=== PATIENT | male | born 1930 | race Caucasian/White ===

== ENCOUNTER 2016-06-22 17:36 | Inpatient (IN) | payer MEDICARE, BC ==
--- NOTE | 2016-06-22 17:25 | EDM.PDOC ---
Addendum entered and electronically signed by Perri Jeronimo PA-C 06/23/16 03:27: Agree with assessment and documentation of Dr. Crys Grewal. Tc consult Dr. Tafoya regarding patient with new compression fracture L2. Dr. Man agreeable that patient appropriate for admission for observation for further evaluation and pain management. Son here and informed of findings and plan. Original Note: <Meir Osman - Last Filed: 06/22/16 18:51> ED HPI LOWER BACK PAIN/INJURY - General Chief Complaint: Back Pain or Injury Stated Complaint: AMB Time Seen by Provider: 06/22/16 17:25 Source of Information: Reports: Patient, EMS notes reviewed, Family, RN notes reviewed History Limitations: Reports: No limitations - History of Present Illness INITIAL COMMENTS - FREE TEXT/NARRATIVE: An 86-year-old male presenting with mid thoracic back pain, started at home today around noon when he was getting up to answer the phone. The pain was sudden and sharp and improved with rest. He denies any falls. He denies any numbness or tingling in his legs. He has chronic numbness in his feet, which is unchanged. He denies any saddle paresthesias. He has a history of an enlarged prostate and denies new urinary symptoms. He denies any incontinence of stool. He has not taken any medication for the pain. He has a history of a vertebral fracture dating back to December 17, 2015. He was recently discharged from a rehab program two weeks ago. Reports doing well at home until this point. He sometimes uses a cane for ambulation. Symptom Onset Date: 06/22/16 Timing/Duration: Reports: Sudden onset Location: Reports: paraspinal Quality: Reports: Sharp Severity: severe Place of Occurrence: home Improves with: Reports: Rest Worsens with: Reports: Movement Associated Symptoms: Reports: Denies symptoms - Related Data Allergies/ADRs: Allergies Allergy/AdvReac Type Severity Reaction Status Date / Time No Known Allergies Allergy Verified 06/22/16 17:09 Home Meds: Home Meds Cholecalciferol (Vitamin D3) [Vitamin D3] 1,000 units PO DAILY 10/22/13 [History ] Docusate Sodium [Colace] 50 mg PO DAILY PRN 10/22/13 [History] Ibuprofen 600 mg PO Q6H PRN 10/22/13 [History] Simvastatin 10 mg PO BEDTIME 10/22/13 [History] Albuterol Sulfate [Proventil Hfa] 2 puff IH Q6H PRN 07/22/15 [History] Fluticasone/Salmeterol [Advair 250-50 Diskus] 1 puff INH BID 01/07/16 [History] Ipratropium [place] 2 sprays NASBOTH QID PRN 01/07/16 [History] Polyethylene Glycol 3350 [MiraLAX] 17 gm PO DAILY PRN 01/07/16 [History] Acetaminophen [Tylenol] 650 mg PO Q4H PRN #0 tablet 01/21/16 [Rx] Calcitonin ([place]) [Miacalcin Nasal [place]] 1 spray [place]RON DAILY #0 bottle [Rx] Calcium Carbonate/Vitamin D3 [Calcium 600-Vit D3 400 Tablet] 1 each PO DAILY # 30 tablet 01/25/16 [Rx] Multivit-Min/FA/Lycopene/Lut [Centrum Silver Ultra Men's] 1 each PO DAILY #30 tablet 01/25/16 [Rx] Past Medical History HEENT History: Reports: Hard of hearing Cardiovascular History: Reports: High cholesterol Respiratory History: Reports: Asthma Gastrointestinal History: Reports: Bowel obstruction Other Gastrointestinal History: colon cancer Genitourinary History: Reports: Other (see below) Other Genitourinary History: urinary frequency Musculoskeletal History: Reports: Fracture Other Musculoskeletal History: lumbar fusion L4-5. , chronic back pain. Compression fracture 12.27.15 Psychiatric History: Reports: Anxiety Oncologic (Cancer) History: Reports: Colon - Past Surgical History HEENT Surgical History: Reports: Cataract surgery GI Surgical History: Reports: Appendectomy, Other (see below) Other GI Surgeries/Procedures: colon surgery for CA. Small bowel obstruction with surgery at [facility] Other Musculoskeletal Surgeries/Procedures:: back surgery Oncologic Surgical History: Reports: Other (see below) Other Oncologic Surgeries/Procedures: hemicolectomy Social & Family History - Family History Family Medical History: Noncontributory - Tobacco Use Smoking Status *Q: Former Smoker Month Tobacco Last Used: 04/06/1956 Second Hand Smoke Exposure: No - Caffeine Use Caffeine Use: Reports: Coffee - Alcohol Use Days Per Week of Alcohol Use: 0 - Recreational Drug Use Recreational Drug Use: No - Living Situation & Occupation Living situation: Reports: alone ED ROS GENERAL - Review of Systems Review Of Systems: ROS reveals no pertinent complaints other than HPI. ED EXAM,LOWER BACK PAIN/INJURY - Physical Exam Exam: See Below Exam Limited By: No limitations General Appearance: moderate distress (due to pain), cachetic (very thin and frail) Eye Exam: bilateral eye: PERRL (normal) Ears: normal TMs (no hemotympanum.) Nose: normal inspection, normal mucosa, no blood Throat/Mouth: Normal inspection, Normal lips, Normal teeth, Normal gums, Normal oropharynx, Normal voice, No airway compromise Head: atraumatic, normocephalic Neck: normal inspection, supple, non-tender, full range of motion Respiratory/Chest: no respiratory distress, lungs clear, normal breath sounds, no accessory muscle use, chest non-tender Cardiovascular: normal peripheral pulses, regular rate, rhythm, no edema, no gallop, no JVD, no murmur, no rub GI/Abdominal: normal bowel sounds, soft, non tender, no organomegaly, no distention, no abnormal bruit, no mass Back Exam: paraspinal tenderness (left approximately T10) Extremities: non-tender DTR - Lower Extremities: 1+: knee (R), knee (L), ankle (R), ankle (L) Psychiatric: normal affect, normal mood Skin Exam: Warm, Dry, Intact, Normal color, No rash Lymphatic: no adenopathy Course - Vital Signs Last Recorded V/S: Last Vital Signs Temp 99.6 F 06/22/16 20:07 Pulse 94 06/22/16 20:07 Resp 17 06/22/16 20:07 BP 118/61 06/22/16 20:07 Pulse Ox 92 L 06/22/16 20:07 - Orders/Labs/Meds Orders: Active Orders 24 hr Category Date Time Status Peripheral IV Care [RC] . DIRECTED Care 06/22/16 18:02 Active Lumbar Spine wo Cont [CT] Stat Exams 06/22/16 18:02 Taken Thoracic Spine wo Cont [CT] Stat Exams 06/22/16 18:02 Taken CULTURE BLOOD [BC] Stat Lab 06/22/16 18:45 Received CULTURE BLOOD [BC] Stat Lab 06/22/16 18:50 Received Sodium Chloride 0.9% [Saline Flush] Med 06/22/16 18:01 Active 10 ml FLUSH ASDIRECTED PRN Blood Culture x2 Reflex Set [OM.PC] Stat Oth 06/22/16 18:00 Ordered Peripheral IV Insertion Adult [OM.PC] Stat Oth 06/22/16 18:00 Ordered Medication Orders Sodium Chloride (Saline Flush) 10 ml FLUSH ASDIRECTED PRN PRN Reason: Keep Vein Open Last Admin: 06/22/16 18:12 Dose: 10 ml Labs: Laboratory Tests 06/22/16 06/22/16 06/22/16 Range/Units 18:15 18:45 18:45 WBC 12.2 H (5.0-10.0) 10^3/uL RBC 4.67 (4.6-6.2) 10^6/uL Hgb 12.5 L (14.0-18.0) g/dL Hct 39.7 L (40.0-54.0) % MCV 85.0 (80-100) fL MCH 26.8 L (27.0-34.0) pg MCHC 31.5 L (33.0-35.0) g/dL Plt Count 277 (150-450) 10^3/uL Neut % (Auto) 78.1 H (42.2-75.2) % Lymph % (Auto) 14.1 L (20.5-50.1) % [place] % (Auto) 7.1 (2-8) % Eos % (Auto) 0.5 L (1.0-3.0) % Baso % (Auto) 0.2 (0.0-1.0) % Sodium 135 (135-145) mmol/L Potassium 4.0 (3.6-5.0) mmol/L Chloride 97 L (101-111) mmol/L Carbon Dioxide 28.0 (21.0-31.0) mmol/L Anion Gap 14.0 BUN 17 (7-18) mg/dL Creatinine 0.8 (0.6-1.3) mg/dL Est Cr Clr Drug Dosing 56.59 mL/min Estimated GFR (MDRD) > 60 BUN/Creatinine Ratio 21.25 Glucose 101 (74-105) mg/dL Lactic Acid (0.5-2.2) mmol/L Calcium 9.9 (8.4-10.2) mg/dl Total Bilirubin 0.8 (0.2-1.0) mg/dL AST 18 (10-42) IU/L ALT 15 (10-60) IU/L Alkaline Phosphatase 81 (42-121) IU/L Total Protein 8.1 (6.7-8.2) g/dl Albumin 3.6 (3.2-5.5) g/dl Globulin 4.5 Albumin/Globulin Ratio 0.80 Amylase 86 (28-100) U/L Lipase 26 (22-51) U/L Urine Color Yellow (YELLOW) Urine Appearance Cloudy (CLEAR) Urine pH 7.0 (5.0-9.0) Ur Specific [place] 1.020 (1.005-1.030) Urine Protein 30 H (NEGATIVE) Urine Glucose (UA) Negative (NEGATIVE) Urine Ketones 40 H (NEGATIVE) Urine Occult Blood Trace-intact H (NEGATIVE) Urine Nitrite Negative (NEGATIVE) Urine Bilirubin Negative (NEGATIVE) Urine Urobilinogen 0.2 (0.2-1.0) mg/dL Ur Leukocyte Esterase Negative (NEGATIVE) Urine RBC 10-20 H /HPF Urine WBC 0-5 (0-5/HPF) /HPF Ur Epithelial Cells Few /HPF Urine Bacteria Rare (0-FEW/HPF) /HPF Urine Mucus Few H /LPF 06/22/16 Range/Units 18:45 WBC (5.0-10.0) 10^3/uL RBC (4.6-6.2) 10^6/uL Hgb (14.0-18.0) g/dL Hct (40.0-54.0) % MCV (80-100) fL MCH (27.0-34.0) pg MCHC (33.0-35.0) g/dL Plt Count (150-450) 10^3/uL Neut % (Auto) (42.2-75.2) % Lymph % (Auto) (20.5-50.1) % [place] % (Auto) (2-8) % Eos % (Auto) (1.0-3.0) % Baso % (Auto) (0.0-1.0) % Sodium (135-145) mmol/L Potassium (3.6-5.0) mmol/L Chloride (101-111) mmol/L Carbon Dioxide (21.0-31.0) mmol/L Anion Gap BUN (7-18) mg/dL Creatinine (0.6-1.3) mg/dL Est Cr Clr Drug Dosing mL/min Estimated GFR (MDRD) BUN/Creatinine Ratio Glucose (74-105) mg/dL Lactic Acid 1.1 (0.5-2.2) mmol/L Calcium (8.4-10.2) mg/dl Total Bilirubin (0.2-1.0) mg/dL AST (10-42) IU/L ALT (10-60) IU/L Alkaline Phosphatase (42-121) IU/L Total Protein (6.7-8.2) g/dl Albumin (3.2-5.5) g/dl Globulin Albumin/Globulin Ratio Amylase (28-100) U/L Lipase (22-51) U/L Urine Color (YELLOW) Urine Appearance (CLEAR) Urine pH (5.0-9.0) Ur Specific [place] (1.005-1.030) Urine Protein (NEGATIVE) Urine Glucose (UA) (NEGATIVE) Urine Ketones (NEGATIVE) Urine Occult Blood (NEGATIVE) Urine Nitrite (NEGATIVE) Urine Bilirubin (NEGATIVE) Urine Urobilinogen (0.2-1.0) mg/dL Ur Leukocyte Esterase (NEGATIVE) Urine RBC /HPF Urine WBC (0-5/HPF) /HPF Ur Epithelial Cells /HPF Urine Bacteria (0-FEW/HPF) /HPF Urine Mucus /LPF Meds: Medications Generic Name Dose Route Start Last Admin Trade Name Freq PRN Reason Stop Dose Admin Sodium Chloride 10 ml 06/22/16 18:01 06/22/16 18:12 Saline Flush FLUSH 10 ml ASDIRECTED PRN Administration Keep Vein Open Discontinued Medications Generic Name Dose Route Start Last Admin Trade Name Freq PRN Reason Stop Dose Admin Hydromorphone HCl 0.5 mg 06/22/16 18:01 06/22/16 18:13 Dilaudid IVPUSH 06/22/16 18:02 0.5 mg ONETIME ONE Administration Ondansetron HCl 4 mg 06/22/16 18:01 06/22/16 18:11 Zofran IV 06/22/16 18:02 4 mg ONETIME ONE Administration Departure - Departure Disposition: Admitted As Inpatient 65 Clinical Impression: Weakness, Low back pain Lumbar compression fracture Qualifiers: Encounter type: initial encounter Fracture type: closed Qualified Code(s): S32.000A - Wedge compression fracture of unspecified lumbar vertebra, initial encounter for closed fracture <Crys Grewal - Last Filed: 06/22/16 20:21> Course - Radiology Interpretation Free Text/Narrative:: CT lumbar/Thoracic spine shows acute severe L2 vertebral body fracture with retropulsion of the bones with 25% spinal canal stenosis. There are old compression fractures throughout the lumbar and thoracic spine. The spine is degenerative and osteopenic. There is fibrotic changes of the lungs with a pleural effusion in the right hemithorax concerning for a possible metastatic versus mesothelioma. Enlarged subcarinal lymph node - Re-Assessments/Exams Free Text/Narrative Re-Assessment/Exam: 06/22/16 19:49 Discussed the findings of the CT with the patient including the new lumbar compression fracture. His pain has improved with dilaudid. We discussed the recommendation for admission and Joey agrees. 06/22/16 20:21 Care transferred to hospital service. Departure - Departure Time of Disposition: 20:20 (admitted)
[2016-06-22] MEDS ORDERED: HYDROmorphone 1 MG/ML Syringe IVPUSH ONE (18:01)
[2016-06-22] MEDS ORDERED: Ondansetron 4 MG/2 ML SDV IV ONE (18:01)
[2016-06-22] MEDS: Sodium Chloride 0.9% 10 ML Syringe FLUSH PRN (18:12)
[2016-06-22 19:17] LABS: CHLORIDE,CL 97 mmol/L (101-111); SODIUM,NA 135 mmol/L (135-145)
[2016-06-22] MEDS ORDERED: IPRATROPIUM BROMIDE NASBOTH PRN (21:10)
[2016-06-22] MEDS ORDERED: Albuterol 6.7 GM Inhaler INH PRN (21:10)
[2016-06-22] MEDS: Formoterol/Mometasone 200-5 MCG 8.8 GM Inhaler IH SCH (21:45)
[2016-06-22] MEDS: Polyethylene Glycol 3350 Powder 17 GM Packet PO PRN (21:46)
[2016-06-22] MEDS: Docusate Sodium 100 MG Cap PO PRN (21:46)
[2016-06-22] MEDS: traMADol 50 MG Tab PO SCH (21:46)
--- NOTE | 2016-06-22 22:12 | PCM.HP ---
H&P History of Present Illness - General Date of Service: 06/22/16 Admit Problem/Dx: Admission Diagnosis/Problem Admission Diagnosis/Problem Back pain Source of Information: Patient, Family History Limitations: Reports: Other (hearing impairment) - History of Present Illness Initial Comments - Free Text/Narative: Mr. Arizmendi is a 86 year old male was admitted due to back pain. Today after lunch , patient called his son stating he is in pain. When son arrived in the house, patient was laying in the couch. patient reports that he was just putting on clothes and getting up from the couch, at some point there, he started having severe back pain on the lower back. Patient reports history of back problems in the past but no as severed as this. 5 months prior, his back was hit by a closing garage door that lead him to hospital. he was in a residential in [place] and now has been living on his own for two weeks. patient reports that the last time he fell was 6 years ago, son also does not recall any recent falls. he has chronic tingling on both toes which has not changed recently, denies any numbness or tingling in the legs. bowel movement is usually every two days which has not changed as well. no changes in the urinary habits. ambulates well without any assistive device. Left Middle Back Pain Score (Numeric/FACES): 10 - Related Data Allergies/Adverse Reactions: Allergies Allergy/AdvReac Type Severity Reaction Status Date / Time No Known Allergies Allergy Verified 06/22/16 17:09 Home Medications: Home Meds Cholecalciferol (Vitamin D3) [Vitamin D3] 1,000 units PO DAILY 10/22/13 [History ] Docusate Sodium [Colace] 100 mg PO BID 10/22/13 [History] Ibuprofen 600 mg PO Q6H PRN 10/22/13 [History] Simvastatin 10 mg PO BEDTIME 10/22/13 [History] Albuterol Sulfate [Proventil Hfa] 2 puff IH Q6H PRN 07/22/15 [History] Fluticasone/Salmeterol [Advair 250-50 Diskus] 1 puff INH BID 01/07/16 [History] Ipratropium [place] 2 sprays NASBOTH QID PRN 01/07/16 [History] Polyethylene Glycol 3350 [MiraLAX] 17 gm PO DAILY PRN 01/07/16 [History] Acetaminophen [Tylenol] 650 mg PO Q4H PRN #0 tablet 01/21/16 [Rx] Calcitonin ([place]) [Miacalcin Nasal [place]] 1 spray [place] DAILY #0 bottle [Rx] Calcium Carbonate/Vitamin D3 [Calcium 600-Vit D3 400 Tablet] 1 each PO DAILY # 30 tablet 01/25/16 [Rx] Multivit-Min/FA/Lycopene/Lut [Centrum Silver Ultra Men's] 1 each PO DAILY #30 tablet 01/25/16 [Rx] Tamsulosin [Flomax] 0.4 mg PO DAILY 06/23/16 [History] Acetaminophen/oxyCODONE [Percocet 325-5 MG] 1 tab PO Q6H PRN #0 tablet 06/27/16 [Rx] Amoxicillin/Clavulanate K [Augmentin 500 MG\125 MG] 1 tab PO Q8HR tablet [Rx] Azithromycin [Zithromax] 250 mg PO DAILY tablet 06/27/16 [Rx] Baclofen [Lioresal] 10 mg PO TID tablet 06/27/16 [Rx] Lidocaine 5% [Lidoderm 5%] 700 mg TOP DAILY patch 06/27/16 [Rx] Pantoprazole [ProTONIX] 40 mg PO ACBREAKFAST tab.cr 06/27/16 [Rx] Polyethylene Glycol 3350 [MiraLAX] 17 gm PO DAILY packet 06/27/16 [Rx] fentaNYL [Duragesic] 12 mcg TRDERM Q72H patch 06/27/16 [Rx] Past Medical History HEENT History: Reports: Cataract, Hard of hearing Other HEENT History: bilateral cataract Cardiovascular History: Reports: High cholesterol, Syncope Respiratory History: Reports: Asthma Gastrointestinal History: Reports: Bowel obstruction, Chronic constipation Other Gastrointestinal History: colon cancer Genitourinary History: Reports: Other (see below) Other Genitourinary History: urinary frequency Musculoskeletal History: Reports: Back pain, chronic, Fracture, Osteoporosis Other Musculoskeletal History: lumbar fusion L4-5. , chronic back pain. Compression fracture 12.27.15 Psychiatric History: Reports: Anxiety Endocrine/Metabolic History: Reports: Osteoporosis Hematologic History: Reports: None Oncologic (Cancer) History: Reports: Colon, Other (see below) Other Oncologic History: skin ca to nose and ear Dermatologic History: Reports: Other (see below) Other Dermatologic History: skin ca on nose and ear - Infectious Disease History Infectious Disease History: Reports: Chicken pox, Measles, Mumps - Past Surgical History HEENT Surgical History: Reports: Adenoidectomy, Cataract surgery, Tonsillectomy Cardiovascular Surgical History: Reports: None Respiratory Surgical History: Reports: None GI Surgical History: Reports: Appendectomy, Colonoscopy, Hernia, inguinal, Other (see below) Other GI Surgeries/Procedures: colon surgery for CA. Small bowel obstruction with surgery at [facility] Right inguinal hernia and abdominal hernia Other Neurological Surgeries/Procedures: Has rods and fused lower back Other Musculoskeletal Surgeries/Procedures:: back surgery Oncologic Surgical History: Reports: Other (see below) Other Oncologic Surgeries/Procedures: hemicolectomy Social & Family History - Family History Family Medical History: Noncontributory - Tobacco Use Smoking Status *Q: Former Smoker Years of Tobacco use: 15 Packs/Tins Daily: 2 Used Tobacco, but Quit: No Month Tobacco Last Used: October Second Hand Smoke Exposure: No - Caffeine Use Caffeine Use: Reports: None - Alcohol Use Days Per Week of Alcohol Use: 0 - Recreational Drug Use Recreational Drug Use: No - Living Situation & Occupation Living situation: Reports: alone H&P Review of Systems - Review of Systems: Review Of Systems: See Below General: Reports: no symptoms, decreased appetite Pulmonary: Reports: No Symptoms Cardiovascular: Reports: no symptoms Gastrointestinal: Reports: No symptoms Musculoskeletal: Reports: no symptoms Exam - Exam Exam: See Below - Vital Signs Vital Signs: Last Vital Signs Temp 37.6 C 06/22/16 20:07 Pulse 94 06/22/16 20:07 Resp 17 06/22/16 20:07 BP 118/61 06/22/16 20:07 Pulse Ox 92 L 06/22/16 20:07 Weight: 56.812 kg - Exam Quality Assessment: supplemental oxygen General: alert, oriented HEENT: Conjunctiva clear Neck: supple Lungs: Clear to auscultation, Normal respiratory effort Cardiovascular: regular rate, regular rhythm Abdomen: normal bowel sounds, soft Back Exam: other (unable to examine patient was in patient when position changes from supine to sitting) Extremities: normal inspection Skin: warm Neurological: cranial nerves intact Neuro Extensive - Mental Status: alert - Patient Data Result Diagrams: 06/25/16 06:10 04/15/17 06:10 *Q Meaningful Use (ADM) - VTE *Q VTE Criteria *Q: - Stroke *Q Stroke Criteria *Q: - AMI *Q AMI Criteria *Q: Problem List Initiated/Reviewed/Updated: Yes Orders Last 24hrs: Active Orders 24 hr Category Date Time Status OT Evaluation and Treatment [CONS] Routine Cons 06/22/16 21:12 Active PT Evaluation and Treatment [CONS] Routine Cons 06/22/16 21:12 Active Regular Diet [DIET] Diet 06/22/16 Breakfast Active Chest 1V Frontal [CR] Routine Exams 06/22/16 21:37 Taken Acetaminophen [Tylenol] Med 06/22/16 21:10 Active 650 mg PO Q4H PRN Albuterol [Proventil HFA] Med 06/22/16 21:10 Active 0 gm INH Q6H PRN Calcitonin ([place]) [Miacalcin Nasal [place]] Med 06/23/16 09:00 Active 0 ml [place] DAILY Calcium Carbonate/Vitamin D3 [Calcium Carbonate/Vitamin Med 06/23/16 09:00 Active D 1250 MG-200 Unit] 1 tab PO DAILY Cholecalciferol (Vitamin D3) [Vitamin D3] Med 06/23/16 09:00 Active 1,000 units PO DAILY Docusate Sodium [Colace] Med 06/22/16 21:29 Active 100 mg PO DAILY PRN Ibuprofen [Motrin] Med 06/22/16 21:10 Active 600 mg PO Q6H PRN Ipratropium [place] Med 06/22/16 21:10 Pending 2 sprays NASBOTH QID PRN Mometasone/Formoterol [Dulera 200-5 MCG] Med 06/22/16 21:30 Active 2 puff IH BIDRT Morphine Med 06/22/16 21:16 Active 1 mg IVPUSH Q4H PRN Multivitamins/Minerals [Vitamins and Minerals] Med 06/23/16 09:00 Active 1 tab PO DAILY Polyethylene Glycol 3350 [MiraLAX] Med 06/22/16 21:10 Active 17 gm PO DAILY PRN Simvastatin [Zocor] Med 06/23/16 21:00 Active 10 mg PO BEDTIME traMADol [Ultram] Med 06/22/16 22:00 Active 50 mg PO Q8HR Medication Orders Acetaminophen (Tylenol) 650 mg PO Q4H PRN PRN Reason: Pain Albuterol (Proventil Hfa) 0 gm INH Q6H PRN PRN Reason: Wheezing Calcitonin [place] (Miacalcin Nasal [place]) 0 ml [place] DAILY [facility] Calcium Carbonate (Calcium Carbonate/Vitamin D 1250 Mg-200 Unit) 1 tab PO DAILY [facility] Cholecalciferol (Vitamin D3) 1,000 units PO DAILY [facility] Docusate Sodium (Colace) 100 mg PO DAILY PRN PRN Reason: Constipation Last Admin: 06/22/16 21:46 Dose: 100 mg Ibuprofen (Motrin) 600 mg PO Q6H PRN PRN Reason: Pain Mometasone Furoate/Formoterol Fumar (Dulera 200-5 Mcg) 2 puff IH BIDRT [facility] Last Admin: 06/22/16 21:45 Dose: 2 puff Morphine Sulfate (Morphine) 1 mg IVPUSH Q4H PRN PRN Reason: Pain Multivitamins/Minerals (Vitamins And Minerals) 1 tab PO DAILY [facility] Non-Formulary Medication (Ipratropium [place]) 2 sprays NASBOTH QID PRN PRN Reason: Rhinitis Polyethylene Glycol (Miralax) 17 gm PO DAILY PRN PRN Reason: Constipation Last Admin: 06/22/16 21:46 Dose: 17 gm Simvastatin (Zocor) 10 mg PO BEDTIME [facility] Sodium Chloride (Saline Flush) 10 ml FLUSH ASDIRECTED PRN PRN Reason: Keep Vein Open Last Admin: 06/22/16 18:12 Dose: 10 ml Tramadol HCl (Ultram) 50 mg PO Q8HR [facility] Last Admin: 06/22/16 21:46 Dose: 50 mg Assessment/Plan Comment:: 1. acute low back pain multifactorial (compressino fracture and spinal stenosis) - pain control: start tramadol 50 mg every 8 hours, morphine for breakthrough pain - consults physical therapy and occupational therapy 2. hypoxiA - chest xay - continue supplemental oxygen 3. compression fracture - continue calcitonin-salmon nasal - vitamin D 4. leukocytosis - most likely reactive 5. dyslipidemia - resume simvastatin 6. history of colon cancer status post surgery - ensure regular bowel movements 7. asthma - continue inhaler code status: DNR DVT prophylaxis: Lovenox
[2016-06-23] MEDS: Morphine 2 MG/ML Syringe IVPUSH PRN ×2 (04:13→11:18)
[2016-06-23] MEDS: traMADol 50 MG Tab PO SCH (05:31)
[2016-06-23] MEDS: Formoterol/Mometasone 200-5 MCG 8.8 GM Inhaler IH SCH ×2 (09:02→18:23)
[2016-06-23] MEDS: Calcitonin (Salmon) Nasal Spray 3.7 ML Bottle NAS SCH (09:03)
[2016-06-23] MEDS: Acetaminophen 325 MG Tab PO PRN (09:04)
[2016-06-23] MEDS: Cholecalciferol (Vitamin D3) 400 Unit Tab PO SCH (09:04)
[2016-06-23] MEDS: Calcium Carbonate/Vitamin D3 1250 MG-200 Unit Tab PO SCH (09:04)
[2016-06-23] MEDS: Multivitamins, Therapeutic with Minerals Tab PO SCH (09:04)
[2016-06-23] MEDS: Acetaminophen/oxyCODONE 325-5 MG Tab PO SCH ×2 (13:04→18:23)
[2016-06-23] MEDS ORDERED: Enoxaparin 40 MG/0.4 ML Syringe SUBCUT ONE (13:19)
--- NOTE | 2016-06-23 17:57 | PCM.PN ---
- General Info Date of Service: 06/23/16 Subjective Update: Patient was not able to get good sleep due to pain. Rates pain as 8/10 especially when he sits up. was able to ambulate today with physical therapy. no chest pain nor shortness of breath. Functional Status: Reports: tolerating diet, ambulating. Denies: pain controlled - Patient Data Vitals - most recent: Last Vital Signs Temp 37.0 C 06/23/16 15:00 Pulse 82 06/23/16 15:00 Resp 20 06/23/16 15:00 BP 114/63 06/23/16 15:00 Pulse Ox 100 06/23/16 15:00 Weight - most recent: 56.812 kg I&O - last 24 hours: Intake & Output 06/23/16 06/23/16 06/23/16 06:59 14:59 22:59 Intake Total 400 Output Total 300 Balance 100 Lab Results last 24 hrs: Laboratory Results - last 24 hr 06/23/16 06/23/16 Range/Units 11:50 11:50 WBC 11.2 H (5.0-10.0) 10^3/uL RBC 4.07 L (4.6-6.2) 10^6/uL Hgb 10.9 L (14.0-18.0) g/dL Hct 34.5 L (40.0-54.0) % MCV 84.8 (80-100) fL MCH 26.8 L (27.0-34.0) pg MCHC 31.6 L (33.0-35.0) g/dL Plt Count 233 (150-450) 10^3/uL Neut % (Auto) 80.3 H (42.2-75.2) % Lymph % (Auto) 9.9 L (20.5-50.1) % [place] % (Auto) 8.6 H (2-8) % Eos % (Auto) 0.9 L (1.0-3.0) % Baso % (Auto) 0.3 (0.0-1.0) % C-Reactive Protein 3.7 H (0.0-1.3) mg/dL Med Orders - Current: Current Medications Acetaminophen (Tylenol) 650 mg PO Q4H PRN PRN Reason: Pain Last Admin: 06/23/16 09:04 Dose: 650 mg Albuterol (Proventil Hfa) 0 gm INH Q6H PRN PRN Reason: Wheezing Calcitonin [place] (Miacalcin Nasal [place]) 0 ml [place] DAILY [facility] Last Admin: 06/23/16 09:03 Dose: 1 spray Calcium Carbonate (Calcium Carbonate/Vitamin D 1250 Mg-200 Unit) 1 tab PO DAILY [facility] Last Admin: 06/23/16 09:04 Dose: 1 tab Cholecalciferol (Vitamin D3) 1,000 units PO DAILY [facility] Last Admin: 06/23/16 09:04 Dose: 1,000 units Docusate Sodium (Colace) 100 mg PO DAILY PRN PRN Reason: Constipation Last Admin: 06/22/16 21:46 Dose: 100 mg Enoxaparin Sodium (Lovenox) 40 mg SUBCUT DAILY [facility] Ibuprofen (Motrin) 600 mg PO Q6H PRN PRN Reason: Pain Mometasone Furoate/Formoterol Fumar (Dulera 200-5 Mcg) 2 puff IH BIDRT [facility] Last Admin: 06/23/16 09:02 Dose: 2 puff Morphine Sulfate (Morphine) 1 mg IVPUSH Q4H PRN PRN Reason: Pain Last Admin: 06/23/16 11:18 Dose: 1 mg Multivitamins/Minerals (Vitamins And Minerals) 1 tab PO DAILY [facility] Last Admin: 06/23/16 09:04 Dose: 1 tab Non-Formulary Medication (Ipratropium [place]) 2 sprays NASBOTH QID PRN PRN Reason: Rhinitis Oxycodone/Acetaminophen (Percocet 325-5 Mg) 1 tab PO Q6H [facility] Last Admin: 06/23/16 13:04 Dose: 1 tab Polyethylene Glycol (Miralax) 17 gm PO DAILY PRN PRN Reason: Constipation Last Admin: 06/22/16 21:46 Dose: 17 gm Simvastatin (Zocor) 10 mg PO BEDTIME [facility] Sodium Chloride (Saline Flush) 10 ml FLUSH ASDIRECTED PRN PRN Reason: Keep Vein Open Last Admin: 06/22/16 18:12 Dose: 10 ml Discontinued Medications Enoxaparin Sodium (Lovenox) 40 mg SUBCUT ONETIME ONE Stop: 06/23/16 13:20 Last Admin: 06/23/16 14:37 Dose: 40 mg Hydromorphone HCl (Dilaudid) 0.5 mg IVPUSH ONETIME ONE Stop: 06/22/16 18:02 Last Admin: 06/22/16 18:13 Dose: 0.5 mg Ondansetron HCl (Zofran) 4 mg IV ONETIME ONE Stop: 06/22/16 18:02 Last Admin: 06/22/16 18:11 Dose: 4 mg Tramadol HCl (Ultram) 50 mg PO Q8HR [facility] Last Admin: 06/23/16 05:31 Dose: 50 mg - Exam Quality Assessment: supplemental oxygen General: alert, oriented Lungs: Clear to auscultation, Normal respiratory effort Cardiovascular: Regular Rate, Regular Rhythm Abdomen: bowel sounds present, soft, no tenderness Extremities: no edema - Problem List Review Problem List Initiated/Reviewed/Updated: Yes - My Orders Last 24 Hours: My Active Orders 06/22/16 21:10 Acetaminophen [Tylenol] 650 mg PO Q4H PRN Albuterol [Proventil HFA] 0 gm INH Q6H PRN Ibuprofen [Motrin] 600 mg PO Q6H PRN Ipratropium [place] 2 sprays NASBOTH QID PRN Polyethylene Glycol 3350 [MiraLAX] 17 gm PO DAILY PRN 06/22/16 21:12 OT Evaluation and Treatment [CONS] Routine PT Evaluation and Treatment [CONS] Routine 06/22/16 21:16 Morphine 1 mg IVPUSH Q4H PRN 06/22/16 21:29 Docusate Sodium [Colace] 100 mg PO DAILY PRN 06/22/16 21:30 Mometasone/Formoterol [Dulera 200-5 MCG] 2 puff IH BIDRT 06/23/16 09:00 Calcitonin ([place]) [Miacalcin Nasal [place]] 0 ml B[place]RON DAILY Calcium Carbonate/Vitamin D3 [Calcium Carbonate/Vitamin D 1250 MG-200 Unit] 1 tab PO DAILY Cholecalciferol (Vitamin D3) [Vitamin D3] 1,000 units PO DAILY Multivitamins/Minerals [Vitamins and Minerals] 1 tab PO DAILY 06/23/16 11:40 Blood Culture x2 Reflex Set [OM.PC] Stat 06/23/16 12:00 Acetaminophen/oxyCODONE [Percocet 325-5 MG] 1 tab PO Q6H 06/23/16 21:00 Simvastatin [Zocor] 10 mg PO BEDTIME 06/24/16 09:00 Enoxaparin [Lovenox] 40 mg SUBCUT DAILY - Plan Plan:: 1. acute low back pain - physical therapy on board - pain control: change tramadol to oxycodone every 6 hours and morphine for breakthrough pain 2. hypoxiA, unclear etiology - chest xray showed pleural thickening which was present on previous chest xrays (metastatic versus mesothelioma - continue supplemental oxygen for now - chest auscultation showed NO adventitious sounds noted and patient denies any SOB nor cough - check for DDimer 3. compression fracture - continue calcitonin-salmon nasal - vitamin D 4. leukocytosis - most likely reactive, still mildly elevated on repeat - blood cultures were drawn on admission - CRP is mildly elevated 5. dyslipidemia - resume simvastatin 6. history of colon cancer status post surgery - ensure regular bowel movements 7. asthma - continue inhalers code status: DNR DVT prophylaxis: Lovenox
[2016-06-23] MEDS: Ibuprofen 600 MG Tab PO PRN (18:37)
[2016-06-23] MEDS: Simvastatin 10 MG Tab PO SCH (20:46)
[2016-06-23] MEDS: Sodium Chloride 0.9% 10 ML Syringe FLUSH PRN (21:31)
[2016-06-24] MEDS: Acetaminophen/oxyCODONE 325-5 MG Tab PO SCH ×2 (00:03→06:08)
[2016-06-24] MEDS: Formoterol/Mometasone 200-5 MCG 8.8 GM Inhaler IH SCH ×2 (06:43→18:23)
[2016-06-24] MEDS ORDERED: Azithromycin 250 MG Tab PO ONE (08:38)
[2016-06-24] MEDS: Calcitonin (Salmon) Nasal Spray 3.7 ML Bottle NAS SCH (09:07)
[2016-06-24] MEDS: Cholecalciferol (Vitamin D3) 400 Unit Tab PO SCH (09:08)
[2016-06-24] MEDS: Multivitamins, Therapeutic with Minerals Tab PO SCH (09:08)
[2016-06-24] MEDS: Enoxaparin 40 MG/0.4 ML Syringe SUBCUT SCH (09:08)
[2016-06-24] MEDS: Acetaminophen 325 MG Tab PO PRN (09:08)
[2016-06-24] MEDS: Calcium Carbonate/Vitamin D3 1250 MG-200 Unit Tab PO SCH (09:09)
[2016-06-24] MEDS: Docusate Sodium 100 MG Cap PO PRN (09:09)
--- NOTE | 2016-06-24 10:10 | PCM.PN ---
- General Info Date of Service: 06/24/16 Admission Dx/Problem (Free Text): Admission Diagnosis/Problem Admission Diagnosis/Problem Back pain Subjective Update: admitted with acute back pain. pain started suddenly on the day of admission sharp, no radiating, no associated leg neuro deficit worse with movements, better with pain meds no chest pain nor shortness of breath. Functional Status: Reports: tolerating diet, ambulating. Denies: pain controlled - Review of Systems General: Denies: Weakness Pulmonary: Denies: shortness of breath Cardiovascular: Denies: Chest Pain Gastrointestinal: Denies: Abdominal pain Neurological: Denies: Confusion, Paresthesia, Syncope Psychiatric: Denies: depression - Patient Data Vitals - most recent: Last Vital Signs Temp 36.6 C 06/24/16 07:00 Pulse 62 06/24/16 07:00 Resp 18 06/24/16 07:00 BP 106/51 L 06/24/16 07:00 Pulse Ox 98 06/24/16 07:00 Weight - most recent: 56.812 kg I&O - last 24 hours: Intake & Output 06/23/16 06/24/16 06/24/16 22:59 06:59 14:59 Intake Total 1470 200 Output Total 975 850 Balance 495 -650 Lab Results last 24 hrs: Laboratory Results - last 24 hr 06/23/16 06/23/16 06/23/16 Range/Units 11:50 11:50 11:50 WBC 11.2 H (5.0-10.0) 10^3/uL RBC 4.07 L (4.6-6.2) 10^6/uL Hgb 10.9 L (14.0-18.0) g/dL Hct 34.5 L (40.0-54.0) % MCV 84.8 (80-100) fL MCH 26.8 L (27.0-34.0) pg MCHC 31.6 L (33.0-35.0) g/dL Plt Count 233 (150-450) 10^3/uL Neut % (Auto) 80.3 H (42.2-75.2) % Lymph % (Auto) 9.9 L (20.5-50.1) % [place] % (Auto) 8.6 H (2-8) % Eos % (Auto) 0.9 L (1.0-3.0) % Baso % (Auto) 0.3 (0.0-1.0) % D-Dimer, Quantitative 715 H (0-400) ng/mL C-Reactive Protein 3.7 H (0.0-1.3) mg/dL Med Orders - Current: Current Medications Acetaminophen (Tylenol) 650 mg PO Q4H PRN PRN Reason: Pain Last Admin: 06/24/16 09:08 Dose: 650 mg Albuterol (Proventil Hfa) 0 gm INH Q6H PRN PRN Reason: Wheezing Amoxicillin/Clavulanate Potassium (Augmentin 500 Mg\125 Mg) 1 tab PO Q8HR [facility] Azithromycin (Zithromax) 250 mg PO DAILY [facility] Baclofen (Lioresal) 5 mg PO TID [facility] Calcitonin [place] (Miacalcin Nasal [place]) 0 ml [place] DAILY [facility] Last Admin: 06/24/16 09:07 Dose: 1 spray Calcium Carbonate (Calcium Carbonate/Vitamin D 1250 Mg-200 Unit) 1 tab PO DAILY [facility] Last Admin: 06/24/16 09:09 Dose: 1 tab Cholecalciferol (Vitamin D3) 1,000 units PO DAILY [facility] Last Admin: 06/24/16 09:08 Dose: 1,000 units Dexamethasone (Dexamethasone) 4 mg IVPUSH Q6H [facility] Docusate Sodium (Colace) 100 mg PO DAILY PRN PRN Reason: Constipation Last Admin: 06/24/16 09:09 Dose: 100 mg Enoxaparin Sodium (Lovenox) 40 mg SUBCUT DAILY [facility] Last Admin: 06/24/16 09:08 Dose: 40 mg Ibuprofen (Motrin) 600 mg PO Q6H PRN PRN Reason: Pain Last Admin: 06/23/16 18:37 Dose: 600 mg Lidocaine (Lidoderm 5%) 700 mg TOP DAILY [facility] Mometasone Furoate/Formoterol Fumar (Dulera 200-5 Mcg) 2 puff IH BIDRT [facility] Last Admin: 06/24/16 06:43 Dose: 2 puff Morphine Sulfate (Morphine) 1 mg IVPUSH Q4H PRN PRN Reason: Pain Last Admin: 06/23/16 11:18 Dose: 1 mg Multivitamins/Minerals (Vitamins And Minerals) 1 tab PO DAILY [facility] Last Admin: 06/24/16 09:08 Dose: 1 tab Non-Formulary Medication (Ipratropium [place]) 2 sprays NASBOTH QID PRN PRN Reason: Rhinitis Oxycodone/Acetaminophen (Percocet 325-5 Mg) 1 tab PO Q6H PRN PRN Reason: Pain Pantoprazole Sodium (Protonix) 40 mg PO ACBREAKFAST [facility] Polyethylene Glycol (Miralax) 17 gm PO DAILY PRN PRN Reason: Constipation Last Admin: 06/22/16 21:46 Dose: 17 gm Simvastatin (Zocor) 10 mg PO BEDTIME [facility] Last Admin: 06/23/16 20:46 Dose: 10 mg Sodium Chloride (Saline Flush) 10 ml FLUSH ASDIRECTED PRN PRN Reason: Keep Vein Open Last Admin: 06/23/16 21:31 Dose: 10 ml Discontinued Medications Azithromycin (Zithromax) 500 mg PO ONETIME ONE Stop: 06/24/16 08:39 Last Admin: 06/24/16 09:09 Dose: 500 mg Enoxaparin Sodium (Lovenox) 40 mg SUBCUT ONETIME ONE Stop: 06/23/16 13:20 Last Admin: 06/23/16 14:37 Dose: 40 mg Hydromorphone HCl (Dilaudid) 0.5 mg IVPUSH ONETIME ONE Stop: 06/22/16 18:02 Last Admin: 06/22/16 18:13 Dose: 0.5 mg Ondansetron HCl (Zofran) 4 mg IV ONETIME ONE Stop: 06/22/16 18:02 Last Admin: 06/22/16 18:11 Dose: 4 mg Oxycodone/Acetaminophen (Percocet 325-5 Mg) 1 tab PO Q6H [facility] Last Admin: 06/24/16 06:08 Dose: 1 tab Tramadol HCl (Ultram) 50 mg PO Q8HR [facility] Last Admin: 06/23/16 05:31 Dose: 50 mg - Exam Quality Assessment: supplemental oxygen General: alert, oriented Neck: supple Lungs: Crackles (right side) Abdomen: bowel sounds present, soft, no tenderness Extremities: no edema - Problem List & Annotations (1) Low back pain SNOMED Code(s): 989280110 Code(s): M54.5 - LOW BACK PAIN Status: Acute Current Visit: Yes Qualifiers: (2) Hypertension SNOMED Code(s): 02227115 Code(s): I10 - ESSENTIAL (PRIMARY) HYPERTENSION Status: Chronic Priority : Medium Current Visit: No Qualifiers: - Problem List Review Problem List Initiated/Reviewed/Updated: Yes - My Orders Last 24 Hours: My Active Orders 06/24/16 09:56 Admission Status [Patient Status] [ADT] Routine 06/24/16 09:57 Acetaminophen/oxyCODONE [Percocet 325-5 MG] 1 tab PO Q6H PRN 06/24/16 10:00 Baclofen [Lioresal] 5 mg PO TID Dexamethasone 4 mg IVPUSH Q6H Lidocaine 5% [Lidoderm 5%] 700 mg TOP DAILY Pantoprazole [ProTONIX] 40 mg PO ACBREAKFAST 06/24/16 14:00 Amoxicillin/Clavulanate K [Augmentin 500 MG\125 MG] 1 tab PO Q8HR 06/25/16 05:15 BASIC METABOLIC PANEL,BMP [CHEM] AM CBC WITH AUTO DIFF [HEME] AM 06/25/16 09:00 Azithromycin [Zithromax] 250 mg PO DAILY - Plan Plan:: 1. acute low back pain - due to L2 compression fracture - not controlled - continue with physical therapy/OT - pain control: change scheduled oxycodone to prn, IV morphine prn, add lidoderm patch, add IV dexamethasone, add baclofen - switch to inpt stay 2. compression fracture - continue calcitonin-salmon nasal - vitamin D 3. acute hypoxemic respiratory failure - likely due to r. sided CT/CXR changes of fibrosis vs. metastasis vs. atypical pneumonia but these changes are chronic - seen on ct 2011 as well - has leukocytosis - chest xray showed pleural thickening which was present on previous chest x- rays (metastatic versus mesothelioma) - possible pneumonia - BCx: neg - start azithro, augmentin - repeat cbc, bmp in AM - taper supplemental oxygen as possible 4. dyslipidemia - resume simvastatin 6. history of colon cancer status post surgery - ensure regular bowel movements 7. COPD - continue inhalers 8. Constipation - increase colace code status: DNR DVT prophylaxis: Lovenox
[2016-06-24] MEDS: Lidocaine 5% 700 MG Patch TOP SCH (11:01)
[2016-06-24] MEDS: Pantoprazole 40 MG Tab.CR PO SCH (11:01)
[2016-06-24] MEDS: Baclofen 10 MG Tab PO SCH ×3 (11:01→20:26)
[2016-06-24] MEDS: Morphine 2 MG/ML Syringe IVPUSH PRN (12:14)
[2016-06-24] MEDS: Polyethylene Glycol 3350 Powder 17 GM Packet PO PRN (12:16)
[2016-06-24] MEDS: Dexamethasone 4 MG/ML SDV IVPUSH SCH ×3 (12:16→23:57)
[2016-06-24] MEDS: Amoxicillin/Clavulanate K 500-125 MG Tab PO SCH ×2 (14:13→22:08)
[2016-06-24] MEDS: Acetaminophen/oxyCODONE 325-5 MG Tab PO PRN ×2 (17:02→22:06)
[2016-06-24] MEDS: Docusate Sodium 100 MG Cap PO SCH (20:26)
[2016-06-24] MEDS: Simvastatin 10 MG Tab PO SCH (20:27)
[2016-06-25] MEDS: Acetaminophen/oxyCODONE 325-5 MG Tab PO PRN ×3 (05:44→19:27)
[2016-06-25] MEDS: Amoxicillin/Clavulanate K 500-125 MG Tab PO SCH ×3 (05:46→22:06)
[2016-06-25] MEDS: Pantoprazole 40 MG Tab.CR PO SCH (05:46)
[2016-06-25] MEDS: Dexamethasone 4 MG/ML SDV IVPUSH SCH ×3 (05:47→17:39)
[2016-06-25 06:42] LABS: CHLORIDE,CL 99 mmol/L (101-111); SODIUM,NA 137 mmol/L (135-145)
[2016-06-25] MEDS: Formoterol/Mometasone 200-5 MCG 8.8 GM Inhaler IH SCH ×2 (09:19→17:39)
[2016-06-25] MEDS: Cholecalciferol (Vitamin D3) 400 Unit Tab PO SCH (09:21)
[2016-06-25] MEDS: Calcitonin (Salmon) Nasal Spray 3.7 ML Bottle NAS SCH (09:22)
[2016-06-25] MEDS: Multivitamins, Therapeutic with Minerals Tab PO SCH (09:22)
[2016-06-25] MEDS: Docusate Sodium 100 MG Cap PO SCH ×2 (09:23→20:36)
[2016-06-25] MEDS: Baclofen 10 MG Tab PO SCH ×3 (09:23→20:35)
[2016-06-25] MEDS: Calcium Carbonate/Vitamin D3 1250 MG-200 Unit Tab PO SCH (09:23)
[2016-06-25] MEDS: Enoxaparin 40 MG/0.4 ML Syringe SUBCUT SCH (09:24)
[2016-06-25] MEDS: Azithromycin 250 MG Tab PO SCH (09:24)
[2016-06-25] MEDS: Lidocaine 5% 700 MG Patch TOP SCH (09:24)
--- NOTE | 2016-06-25 09:59 | PCM.PN ---
- General Info Date of Service: 06/25/16 Admission Dx/Problem (Free Text): Admission Diagnosis/Problem Admission Diagnosis/Problem Back pain Subjective Update: admitted with acute back pain. pain started suddenly on the day of admission with a h/o multiple compression fx. the pain is better, has been able to move from bed to chair started to use again his back brace the pain is sharp, not radiating, no associated leg neuro deficit worse with movements, better with pain meds no chest pain nor shortness of breath associated with this he has constipation. - Review of Systems General: Denies: Fever, Weakness Pulmonary: Denies: shortness of breath Cardiovascular: Denies: Chest Pain Gastrointestinal: Reports: Constipation. Denies: Abdominal pain Neurological: Denies: Confusion, Dizziness Psychiatric: Denies: confusion - Patient Data Vitals - most recent: Last Vital Signs Temp 36.7 C 06/25/16 07:00 Pulse 66 06/25/16 07:00 Resp 18 06/25/16 07:00 BP 110/61 06/25/16 07:00 Pulse Ox 97 06/25/16 07:00 Weight - most recent: 56.812 kg I&O - last 24 hours: Intake & Output 06/24/16 06/25/16 06/25/16 22:59 06:59 14:59 Intake Total 550 200 Output Total 600 Balance -50 200 Lab Results last 24 hrs: Laboratory Results - last 24 hr 06/25/16 06/25/16 Range/Units 06:10 06:10 WBC 13.3 H (5.0-10.0) 10^3/uL RBC 4.28 L (4.6-6.2) 10^6/uL Hgb 11.5 L (14.0-18.0) g/dL Hct 36.4 L (40.0-54.0) % MCV 85.0 (80-100) fL MCH 26.9 L (27.0-34.0) pg MCHC 31.6 L (33.0-35.0) g/dL Plt Count 245 (150-450) 10^3/uL Neut % (Auto) 90.7 H (42.2-75.2) % Lymph % (Auto) 7.4 L (20.5-50.1) % [place] % (Auto) 1.9 L (2-8) % Eos % (Auto) 0.0 L (1.0-3.0) % Baso % (Auto) 0.0 (0.0-1.0) % Sodium 137 (135-145) mmol/L Potassium 4.6 (3.6-5.0) mmol/L Chloride 99 L (101-111) mmol/L Carbon Dioxide 29.0 (21.0-31.0) mmol/L Anion Gap 13.6 BUN 21 H (7-18) mg/dL Creatinine 0.8 (0.6-1.3) mg/dL Est Cr Clr Drug Dosing 52.28 mL/min Estimated GFR (MDRD) > 60 Glucose 147 H (74-105) mg/dL Calcium 9.3 (8.4-10.2) mg/dl Med Orders - Current: Current Medications Acetaminophen (Tylenol) 650 mg PO Q4H PRN PRN Reason: Pain Last Admin: 06/24/16 09:08 Dose: 650 mg Albuterol (Proventil Hfa) 0 gm INH Q6H PRN PRN Reason: Wheezing Amoxicillin/Clavulanate Potassium (Augmentin 500 Mg\125 Mg) 1 tab PO Q8HR [facility] Last Admin: 06/25/16 05:46 Dose: 1 tab Azithromycin (Zithromax) 250 mg PO DAILY [facility] Last Admin: 06/25/16 09:24 Dose: 250 mg Baclofen (Lioresal) 5 mg PO TID [facility] Last Admin: 06/25/16 09:23 Dose: 5 mg Calcitonin [place] (Miacalcin Nasal [place]) 0 ml [place] DAILY [facility] Last Admin: 06/25/16 09:22 Dose: 1 spray Calcium Carbonate (Calcium Carbonate/Vitamin D 1250 Mg-200 Unit) 1 tab PO DAILY [facility] Last Admin: 06/25/16 09:23 Dose: 1 tab Cholecalciferol (Vitamin D3) 1,000 units PO DAILY [facility] Last Admin: 06/25/16 09:21 Dose: 1,000 units Dexamethasone (Dexamethasone) 4 mg IVPUSH Q6HR [facility] Last Admin: 06/25/16 05:47 Dose: 4 mg Docusate Sodium (Colace) 100 mg PO DAILY PRN PRN Reason: Constipation Last Admin: 06/24/16 09:09 Dose: 100 mg Docusate Sodium (Colace) 100 mg PO BID [facility] Last Admin: 06/25/16 09:23 Dose: 100 mg Enoxaparin Sodium (Lovenox) 40 mg SUBCUT DAILY [facility] Last Admin: 06/25/16 09:24 Dose: 40 mg Ibuprofen (Motrin) 600 mg PO Q6H PRN PRN Reason: Pain Last Admin: 06/23/16 18:37 Dose: 600 mg Lidocaine (Lidoderm 5%) 700 mg TOP DAILY [facility] Last Admin: 06/25/16 09:24 Dose: 700 mg Miscellaneous Information (Remove Patch) 1 ea TRDERM BEDTIME [facility] Last Admin: 06/24/16 20:31 Dose: Not Given Mometasone Furoate/Formoterol Fumar (Dulera 200-5 Mcg) 2 puff IH BIDRT [facility] Last Admin: 06/25/16 09:19 Dose: 2 puff Morphine Sulfate (Morphine) 1 mg IVPUSH Q4H PRN PRN Reason: Pain Last Admin: 06/24/16 12:14 Dose: 1 mg Multivitamins/Minerals (Vitamins And Minerals) 1 tab PO DAILY [facility] Last Admin: 06/25/16 09:22 Dose: 1 tab Oxycodone/Acetaminophen (Percocet 325-5 Mg) 1 tab PO Q6H PRN PRN Reason: Pain Last Admin: 06/25/16 05:44 Dose: 1 tab Pantoprazole Sodium (Protonix) 40 mg PO ACBREAKFAST [facility] Last Admin: 06/25/16 05:46 Dose: 40 mg Ipratropium [place] Nasal [place] [facility] Med 0 each NASBOTH QID PRN PRN Reason: Rhinitis Polyethylene Glycol (Miralax) 17 gm PO DAILY PRN PRN Reason: Constipation Last Admin: 06/24/16 12:16 Dose: 17 gm Simvastatin (Zocor) 10 mg PO BEDTIME [facility] Last Admin: 06/24/16 20:27 Dose: 10 mg Sodium Chloride (Saline Flush) 10 ml FLUSH ASDIRECTED PRN PRN Reason: Keep Vein Open Last Admin: 06/23/16 21:31 Dose: 10 ml Discontinued Medications Azithromycin (Zithromax) 500 mg PO ONETIME ONE Stop: 06/24/16 08:39 Last Admin: 06/24/16 09:09 Dose: 500 mg Enoxaparin Sodium (Lovenox) 40 mg SUBCUT ONETIME ONE Stop: 06/23/16 13:20 Last Admin: 06/23/16 14:37 Dose: 40 mg Hydromorphone HCl (Dilaudid) 0.5 mg IVPUSH ONETIME ONE Stop: 06/22/16 18:02 Last Admin: 06/22/16 18:13 Dose: 0.5 mg Ondansetron HCl (Zofran) 4 mg IV ONETIME ONE Stop: 06/22/16 18:02 Last Admin: 06/22/16 18:11 Dose: 4 mg Oxycodone/Acetaminophen (Percocet 325-5 Mg) 1 tab PO Q6H [facility] Last Admin: 06/24/16 06:08 Dose: 1 tab Tramadol HCl (Ultram) 50 mg PO Q8HR [facility] Last Admin: 06/23/16 05:31 Dose: 50 mg - Exam Quality Assessment: supplemental oxygen General: alert, oriented Neck: supple Lungs: Crackles (right) Cardiovascular: Regular Rate, Regular Rhythm Abdomen: bowel sounds present, soft, no tenderness, no distension Back Exam: normal inspection, vertebral tenderness (lumbar) Extremities: no edema - Problem List & Annotations (1) Low back pain SNOMED Code(s): 970406074 Code(s): M54.5 - LOW BACK PAIN Status: Acute Current Visit: Yes Qualifiers: (2) Hypertension SNOMED Code(s): 99636029 Code(s): I10 - ESSENTIAL (PRIMARY) HYPERTENSION Status: Chronic Priority : Medium Current Visit: No Qualifiers: - Problem List Review Problem List Initiated/Reviewed/Updated: Yes - My Orders Last 24 Hours: My Active Orders 06/24/16 09:57 Acetaminophen/oxyCODONE [Percocet 325-5 MG] 1 tab PO Q6H PRN 06/24/16 12:04 Communication Order [RC] DAILY 06/24/16 21:00 Docusate Sodium [Colace] 100 mg PO BID Remove Patch 1 ea TRDERM BEDTIME - Plan Plan:: 1. acute low back pain - due to L2 compression fracture - better controlled - continue with physical therapy/OT - pain control: oxycodone prn, IV morphine prn, continue scheduled lidoderm patch, IV dexamethasone, baclofen 2. compression fracture - continue calcitonin-salmon nasal - vitamin D 3. acute hypoxemic respiratory failure - likely due to r. sided CT/CXR changes of fibrosis vs. metastasis vs. atypical pneumonia but these changes are chronic - seen on ct 2011 as well - possible pneumonia - BCx: neg - started azithro, augmentin (06/24) - taper supplemental oxygen as possible -discussed these changes with the patient and patient's son - consider outpatient followup with repeat imaging, pulmonary consult 4. dyslipidemia - treat with simvastatin 6. history of colon cancer status post surgery - ensure regular bowel movements 7. COPD - continue inhalers 8. Constipation - continue colace - add lactulose code status: DNR DVT prophylaxis: Lovenox
[2016-06-25] MEDS: Lactulose Soln 10 GM/15 ML 30 ML UD Cup PO SCH ×2 (10:18→20:33)
[2016-06-25] MEDS: Ibuprofen 600 MG Tab PO PRN (11:06)
[2016-06-25] MEDS: Sodium Chloride 0.9% 10 ML Syringe FLUSH PRN (12:23)
[2016-06-25] MEDS ORDERED: Ondansetron 4 MG/2 ML SDV IV PRN (13:38)
[2016-06-25] MEDS: Simvastatin 10 MG Tab PO SCH (20:36)
[2016-06-26] MEDS: Dexamethasone 4 MG/ML SDV IVPUSH SCH ×5 (00:09→23:44)
[2016-06-26] MEDS: Pantoprazole 40 MG Tab.CR PO SCH (05:57)
[2016-06-26] MEDS: Amoxicillin/Clavulanate K 500-125 MG Tab PO SCH ×3 (05:57→23:44)
[2016-06-26] MEDS: Formoterol/Mometasone 200-5 MCG 8.8 GM Inhaler IH SCH ×2 (07:33→17:46)
[2016-06-26] MEDS: Polyethylene Glycol 3350 Powder 17 GM Packet PO SCH (08:42)
[2016-06-26] MEDS: Enoxaparin 40 MG/0.4 ML Syringe SUBCUT SCH (08:43)
[2016-06-26] MEDS: Docusate Sodium 100 MG Cap PO SCH ×2 (08:44→20:55)
[2016-06-26] MEDS: Multivitamins, Therapeutic with Minerals Tab PO SCH (08:44)
[2016-06-26] MEDS: Baclofen 10 MG Tab PO SCH ×3 (08:45→20:53)
[2016-06-26] MEDS: Azithromycin 250 MG Tab PO SCH (08:45)
[2016-06-26] MEDS: Calcium Carbonate/Vitamin D3 1250 MG-200 Unit Tab PO SCH (08:45)
[2016-06-26] MEDS: Lidocaine 5% 700 MG Patch TOP SCH (08:48)
[2016-06-26] MEDS: Calcitonin (Salmon) Nasal Spray 3.7 ML Bottle NAS SCH (08:51)
[2016-06-26] MEDS: Ibuprofen 600 MG Tab PO PRN (09:30)
[2016-06-26] MEDS: Cholecalciferol (Vitamin D3) 400 Unit Tab PO SCH (09:51)
--- NOTE | 2016-06-26 10:27 | PCM.PN ---
- General Info Date of Service: 06/26/16 Admission Dx/Problem (Free Text): Admission Diagnosis/Problem Admission Diagnosis/Problem Back pain Subjective Update: admitted with acute back pain. pain started suddenly on the day of admission with a h/o multiple compression fx. the pain is still present, worse with activity, moving and cough started to use again his back brace the pain is sharp, not radiating, no associated leg neuro deficit no chest pain nor shortness of breath associated with this he had constipation but after lactulose had a large BM on Monday - Review of Systems General: Reports: Weakness. Denies: Fever Pulmonary: Denies: shortness of breath Cardiovascular: Denies: Chest Pain Genitourinary: Denies: dysuria Neurological: Denies: Confusion Psychiatric: Denies: depression - Patient Data Vitals - most recent: Last Vital Signs Temp 36.7 C 06/26/16 07:24 Pulse 71 06/26/16 07:24 Resp 20 06/26/16 07:24 BP 133/67 06/26/16 07:24 Pulse Ox 95 06/26/16 07:24 Weight - most recent: 56.812 kg I&O - last 24 hours: Intake & Output 06/25/16 06/26/16 06/26/16 22:59 06:59 14:59 Intake Total 500 565 Output Total 650 150 Balance -150 415 Med Orders - Current: Current Medications Acetaminophen (Tylenol) 650 mg PO Q4H PRN PRN Reason: Pain Last Admin: 06/24/16 09:08 Dose: 650 mg Albuterol (Proventil Hfa) 0 gm INH Q6H PRN PRN Reason: Wheezing Amoxicillin/Clavulanate Potassium (Augmentin 500 Mg\125 Mg) 1 tab PO Q8HR [facility] Last Admin: 06/26/16 05:57 Dose: 1 tab Azithromycin (Zithromax) 250 mg PO DAILY [facility] Last Admin: 06/26/16 08:45 Dose: 250 mg Baclofen (Lioresal) 5 mg PO TID [facility] Last Admin: 06/26/16 08:45 Dose: 5 mg Calcitonin [place] (Miacalcin Nasal [place]) 0 ml [place] DAILY [facility] Last Admin: 06/26/16 08:51 Dose: 1 spray Calcium Carbonate (Calcium Carbonate/Vitamin D 1250 Mg-200 Unit) 1 tab PO DAILY [facility] Last Admin: 06/26/16 08:45 Dose: 1 tab Cholecalciferol (Vitamin D3) 1,000 units PO DAILY [facility] Last Admin: 06/26/16 09:51 Dose: Not Given Dexamethasone (Dexamethasone) 4 mg IVPUSH Q6HR [facility] Last Admin: 06/26/16 05:57 Dose: 4 mg Docusate Sodium (Colace) 100 mg PO BID [facility] Last Admin: 06/26/16 08:44 Dose: 100 mg Enoxaparin Sodium (Lovenox) 40 mg SUBCUT DAILY [facility] Last Admin: 06/26/16 08:43 Dose: 40 mg Fentanyl (Duragesic) 12 mcg TRDERM Q72H [facility] Ibuprofen (Motrin) 600 mg PO Q6H PRN PRN Reason: Pain Last Admin: 06/26/16 09:30 Dose: 600 mg Lidocaine (Lidoderm 5%) 700 mg TOP DAILY [facility] Last Admin: 06/26/16 08:48 Dose: 700 mg Miscellaneous Information (Remove Patch) 1 ea TRDERM BEDTIME [facility] Last Admin: 06/25/16 20:39 Dose: Not Given Mometasone Furoate/Formoterol Fumar (Dulera 200-5 Mcg) 2 puff IH BIDRT [facility] Last Admin: 06/26/16 07:33 Dose: 2 puff Morphine Sulfate (Morphine) 1 mg IVPUSH Q4H PRN PRN Reason: Pain Last Admin: 06/24/16 12:14 Dose: 1 mg Multivitamins/Minerals (Vitamins And Minerals) 1 tab PO DAILY [facility] Last Admin: 06/26/16 08:44 Dose: 1 tab Ondansetron HCl (Zofran) 4 mg IV Q8HR PRN PRN Reason: Nausea/Vomiting Last Admin: 06/25/16 14:04 Dose: 4 mg Oxycodone/Acetaminophen (Percocet 325-5 Mg) 1 tab PO Q6H PRN PRN Reason: Pain Last Admin: 06/25/16 19:27 Dose: 1 tab Pantoprazole Sodium (Protonix) 40 mg PO ACBREAKFAST [facility] Last Admin: 06/26/16 05:57 Dose: 40 mg Ipratropium [place] Nasal [place] Pt's Own Med 0 each NASBOTH QID PRN PRN Reason: Rhinitis Polyethylene Glycol (Miralax) 17 gm PO DAILY PRN PRN Reason: Constipation Last Admin: 06/24/16 12:16 Dose: 17 gm Polyethylene Glycol (Miralax) 17 gm PO DAILY [facility] Last Admin: 06/26/16 08:42 Dose: 17 gm Simvastatin (Zocor) 10 mg PO BEDTIME [facility] Last Admin: 06/25/16 20:36 Dose: 10 mg Sodium Chloride (Saline Flush) 10 ml FLUSH ASDIRECTED PRN PRN Reason: Keep Vein Open Last Admin: 06/25/16 12:23 Dose: 10 ml Discontinued Medications Azithromycin (Zithromax) 500 mg PO ONETIME ONE Stop: 06/24/16 08:39 Last Admin: 06/24/16 09:09 Dose: 500 mg Docusate Sodium (Colace) 100 mg PO DAILY PRN PRN Reason: Constipation Last Admin: 06/24/16 09:09 Dose: 100 mg Enoxaparin Sodium (Lovenox) 40 mg SUBCUT ONETIME ONE Stop: 06/23/16 13:20 Last Admin: 06/23/16 14:37 Dose: 40 mg Hydromorphone HCl (Dilaudid) 0.5 mg IVPUSH ONETIME ONE Stop: 06/22/16 18:02 Last Admin: 06/22/16 18:13 Dose: 0.5 mg Lactulose (Cephulac) 20 gm PO BID [facility] Stop: 06/25/16 21:01 Last Admin: 06/25/16 20:33 Dose: Not Given Ondansetron HCl (Zofran) 4 mg IV ONETIME ONE Stop: 06/22/16 18:02 Last Admin: 06/22/16 18:11 Dose: 4 mg Oxycodone/Acetaminophen (Percocet 325-5 Mg) 1 tab PO Q6H [facility] Last Admin: 06/24/16 06:08 Dose: 1 tab Tramadol HCl (Ultram) 50 mg PO Q8HR [facility] Last Admin: 06/23/16 05:31 Dose: 50 mg - Exam General: alert, oriented Neck: supple Lungs: Clear to auscultation, Normal respiratory effort Cardiovascular: Regular Rhythm, Murmurs (syst) Abdomen: bowel sounds present, soft, no tenderness, no distension Back Exam: vertebral tenderness Extremities: no edema Skin: warm, dry, intact Neurological: no new focal deficit Psy/Mental Status: alert, normal affect, normal mood - Problem List & Annotations (1) Low back pain SNOMED Code(s): 535527090 Code(s): M54.5 - LOW BACK PAIN Status: Acute Current Visit: Yes Qualifiers: (2) Hypertension SNOMED Code(s): 33374087 Code(s): I10 - ESSENTIAL (PRIMARY) HYPERTENSION Status: Chronic Priority : Medium Current Visit: No Qualifiers: - Problem List Review Problem List Initiated/Reviewed/Updated: Yes - My Orders Last 24 Hours: My Active Orders 06/25/16 13:38 Ondansetron [Zofran] 4 mg IV Q8HR PRN 06/26/16 09:00 Polyethylene Glycol 3350 [MiraLAX] 17 gm PO DAILY 06/26/16 10:30 fentaNYL [Duragesic] 12 mcg TRDERM Q72H 06/26/16 15:00 Baclofen [Lioresal] 10 mg PO TID - Plan Plan:: 1. acute low back pain - due to subacute L2 compression fracture - - still not well controlled - continue with physical therapy/OT - pain control: oxycodone prn, IV morphine prn, continue scheduled lidoderm patch, IV dexamethasone, increase baclofen, add fentanyl patch 2. compression fracture - continue calcitonin-salmon nasal - vitamin D 3. acute hypoxemic respiratory failure - likely due to r. sided CT/CXR changes of fibrosis vs. metastasis vs. atypical pneumonia but these changes are chronic - seen on ct 2011 as well - possible pneumonia - BCx: neg - started azithro, augmentin (06/24) - leukocytosis, at least in part, might relate to the steroids - taper supplemental oxygen as possible -discussed these changes with the patient and patient's son - consider outpatient followup with repeat imaging, pulmonary consult 4. dyslipidemia - treat with simvastatin 6. history of colon cancer status post surgery - ensure regular bowel movements 7. COPD - continue inhalers 8. Constipation - had BM on 06/25/16 - continue colace, add miralax 9. impaired glucose tolerance - follow blood sugars -this is likely due to steroids, will taper code status: DNR DVT prophylaxis: Lovenox discharge plan discussed with the son the patient was recently in an assisted living and then return to home, he was at home for about 2 weeks There was concern about ability to manage alone, to manage his medications appropriately, he was receiving Meals on Wheels We will have to consider swing bed to come in assisted living, return to home depending on physical therapy and occupational therapy evaluation
[2016-06-26] MEDS ORDERED: fentaNYL 12 MCG/HR Transdermal Patch TRDERM SCH (10:30)
[2016-06-26] MEDS: Sodium Chloride 0.9% 10 ML Syringe FLUSH PRN ×3 (12:03→23:44)
[2016-06-26] MEDS: Simvastatin 10 MG Tab PO SCH (20:54)
[2016-06-26] MEDS: Check FENTANYL Patch TRDERM SCH (23:59)
[2016-06-27] MEDS: Acetaminophen/oxyCODONE 325-5 MG Tab PO PRN ×2 (02:10→09:08)
[2016-06-27] MEDS: Amoxicillin/Clavulanate K 500-125 MG Tab PO SCH (06:10)
[2016-06-27] MEDS: Dexamethasone 4 MG/ML SDV IVPUSH SCH ×2 (06:10→11:13)
[2016-06-27] MEDS: Sodium Chloride 0.9% 10 ML Syringe FLUSH PRN ×2 (06:10→11:13)
[2016-06-27] MEDS: Pantoprazole 40 MG Tab.CR PO SCH (06:10)
[2016-06-27] MEDS: Formoterol/Mometasone 200-5 MCG 8.8 GM Inhaler IH SCH (07:58)
[2016-06-27] MEDS: Docusate Sodium 100 MG Cap PO SCH (09:29)
[2016-06-27] MEDS: Calcium Carbonate/Vitamin D3 1250 MG-200 Unit Tab PO SCH (09:29)
[2016-06-27] MEDS: Baclofen 10 MG Tab PO SCH (09:30)
[2016-06-27] MEDS: Enoxaparin 40 MG/0.4 ML Syringe SUBCUT SCH (09:30)
[2016-06-27] MEDS: Polyethylene Glycol 3350 Powder 17 GM Packet PO SCH (09:31)
[2016-06-27] MEDS: Cholecalciferol (Vitamin D3) 400 Unit Tab PO SCH (09:31)
[2016-06-27] MEDS: Multivitamins, Therapeutic with Minerals Tab PO SCH (09:32)
[2016-06-27] MEDS: Azithromycin 250 MG Tab PO SCH (09:32)
[2016-06-27] MEDS: Calcitonin (Salmon) Nasal Spray 3.7 ML Bottle NAS SCH (09:39)
--- NOTE | 2016-06-27 09:43 | PCM.PN ---
- General Info Date of Service: 06/27/16 Admission Dx/Problem (Free Text): Admission Diagnosis/Problem Admission Diagnosis/Problem Back pain Subjective Update: admitted with acute back pain. pain started suddenly on the day of admission with a h/o multiple compression fx. the pain is still present, worse with activity, moving - like getting out of bed started to use again his back brace the pain is sharp, not radiating, no associated leg neuro deficit no chest pain nor shortness of breath associated with this Functional Status: Reports: tolerating diet. Denies: pain controlled - Review of Systems General: Denies: Fever Pulmonary: Denies: shortness of breath Cardiovascular: Denies: Chest Pain Gastrointestinal: Denies: Abdominal pain, Constipation Genitourinary: Denies: dysuria - Patient Data Vitals - most recent: Last Vital Signs Temp 36.6 C 06/27/16 03:00 Pulse 80 06/27/16 03:00 Resp 20 06/27/16 03:00 BP 144/78 H 06/27/16 03:00 Pulse Ox 93 L 06/27/16 03:00 Weight - most recent: 56.812 kg I&O - last 24 hours: Intake & Output 06/26/16 06/27/16 06/27/16 22:59 06:59 14:59 Intake Total 720 250 Output Total 300 1300 175 Balance 420 -1050 -175 Med Orders - Current: Current Medications Acetaminophen (Tylenol) 650 mg PO Q4H PRN PRN Reason: Pain Last Admin: 06/24/16 09:08 Dose: 650 mg Albuterol (Proventil Hfa) 0 gm INH Q6H PRN PRN Reason: Wheezing Amoxicillin/Clavulanate Potassium (Augmentin 500 Mg\125 Mg) 1 tab PO Q8HR [facility] Last Admin: 06/27/16 06:10 Dose: 1 tab Azithromycin (Zithromax) 250 mg PO DAILY [facility] Last Admin: 06/27/16 09:32 Dose: 250 mg Baclofen (Lioresal) 10 mg PO TID [facility] Last Admin: 06/27/16 09:30 Dose: 10 mg Calcitonin [place] (Miacalcin Nasal [place]) 0 ml [place] DAILY [facility] Last Admin: 06/26/16 08:51 Dose: 1 spray Calcium Carbonate (Calcium Carbonate/Vitamin D 1250 Mg-200 Unit) 1 tab PO DAILY [facility] Last Admin: 06/27/16 09:29 Dose: 1 tab Cholecalciferol (Vitamin D3) 1,000 units PO DAILY [facility] Last Admin: 06/27/16 09:31 Dose: 1,000 units Dexamethasone (Dexamethasone) 4 mg IVPUSH Q6HR [facility] Last Admin: 06/27/16 06:10 Dose: 4 mg Docusate Sodium (Colace) 100 mg PO BID [facility] Last Admin: 06/27/16 09:29 Dose: 100 mg Enoxaparin Sodium (Lovenox) 40 mg SUBCUT DAILY [facility] Last Admin: 06/27/16 09:30 Dose: 40 mg Fentanyl (Duragesic) 12 mcg TRDERM Q72H [facility] Last Admin: 06/26/16 10:46 Dose: 12 mcg Ibuprofen (Motrin) 600 mg PO Q6H PRN PRN Reason: Pain Last Admin: 06/26/16 09:30 Dose: 600 mg Lidocaine (Lidoderm 5%) 700 mg TOP DAILY [facility] Last Admin: 06/26/16 08:48 Dose: 700 mg Miscellaneous Information (Remove Patch) 1 ea TRDERM BEDTIME [facility] Last Admin: 06/27/16 00:00 Dose: 1 ea Miscellaneous Information (Check Patch) 1 ea TRDERM BID [facility] Last Admin: 06/26/16 23:59 Dose: 1 ea Mometasone Furoate/Formoterol Fumar (Dulera 200-5 Mcg) 2 puff IH BIDRT [facility] Last Admin: 06/27/16 07:58 Dose: 2 puff Morphine Sulfate (Morphine) 1 mg IVPUSH Q4H PRN PRN Reason: Pain Last Admin: 06/24/16 12:14 Dose: 1 mg Multivitamins/Minerals (Vitamins And Minerals) 1 tab PO DAILY [facility] Last Admin: 06/27/16 09:32 Dose: 1 tab Ondansetron HCl (Zofran) 4 mg IV Q8HR PRN PRN Reason: Nausea/Vomiting Last Admin: 06/25/16 14:04 Dose: 4 mg Oxycodone/Acetaminophen (Percocet 325-5 Mg) 1 tab PO Q6H PRN PRN Reason: Pain Last Admin: 06/27/16 09:08 Dose: 1 tab Pantoprazole Sodium (Protonix) 40 mg PO ACBREAKFAST [facility] Last Admin: 06/27/16 06:10 Dose: 40 mg Ipratropium [place] Nasal [place] Pt's Own Med 0 each NASBOTH QID PRN PRN Reason: Rhinitis Polyethylene Glycol (Miralax) 17 gm PO DAILY PRN PRN Reason: Constipation Last Admin: 06/24/16 12:16 Dose: 17 gm Polyethylene Glycol (Miralax) 17 gm PO DAILY [facility] Last Admin: 06/27/16 09:31 Dose: 17 gm Simvastatin (Zocor) 10 mg PO BEDTIME [facility] Last Admin: 06/26/16 20:54 Dose: 10 mg Sodium Chloride (Saline Flush) 10 ml FLUSH ASDIRECTED PRN PRN Reason: Keep Vein Open Last Admin: 06/27/16 06:10 Dose: 10 ml Discontinued Medications Azithromycin (Zithromax) 500 mg PO ONETIME ONE Stop: 06/24/16 08:39 Last Admin: 06/24/16 09:09 Dose: 500 mg Baclofen (Lioresal) 5 mg PO TID [facility] Last Admin: 06/26/16 08:45 Dose: 5 mg Docusate Sodium (Colace) 100 mg PO DAILY PRN PRN Reason: Constipation Last Admin: 06/24/16 09:09 Dose: 100 mg Enoxaparin Sodium (Lovenox) 40 mg SUBCUT ONETIME ONE Stop: 06/23/16 13:20 Last Admin: 06/23/16 14:37 Dose: 40 mg Hydromorphone HCl (Dilaudid) 0.5 mg IVPUSH ONETIME ONE Stop: 06/22/16 18:02 Last Admin: 06/22/16 18:13 Dose: 0.5 mg Lactulose (Cephulac) 20 gm PO BID [facility] Stop: 06/25/16 21:01 Last Admin: 06/25/16 20:33 Dose: Not Given Ondansetron HCl (Zofran) 4 mg IV ONETIME ONE Stop: 06/22/16 18:02 Last Admin: 06/22/16 18:11 Dose: 4 mg Oxycodone/Acetaminophen (Percocet 325-5 Mg) 1 tab PO Q6H [facility] Last Admin: 06/24/16 06:08 Dose: 1 tab Tramadol HCl (Ultram) 50 mg PO Q8HR [facility] Last Admin: 06/23/16 05:31 Dose: 50 mg - Exam General: alert, oriented Neck: supple Lungs: Clear to auscultation, Normal respiratory effort Cardiovascular: Regular Rate, Regular Rhythm Abdomen: bowel sounds present, soft, no tenderness, no distension Back Exam: normal inspection, vertebral tenderness Extremities: no edema Skin: warm, dry, intact Neurological: no new focal deficit Psy/Mental Status: alert, normal affect, normal mood - Problem List & Annotations (1) Low back pain SNOMED Code(s): 072609464 Code(s): M54.5 - LOW BACK PAIN Status: Acute Current Visit: Yes Qualifiers: (2) Hypertension SNOMED Code(s): 77411251 Code(s): I10 - ESSENTIAL (PRIMARY) HYPERTENSION Status: Chronic Priority : Medium Current Visit: No Qualifiers: - Problem List Review Problem List Initiated/Reviewed/Updated: Yes - My Orders Last 24 Hours: My Active Orders 06/26/16 09:00 Polyethylene Glycol 3350 [MiraLAX] 17 gm PO DAILY 06/26/16 10:30 fentaNYL [Duragesic] 12 mcg TRDERM Q72H 06/26/16 15:00 Baclofen [Lioresal] 10 mg PO TID 06/26/16 21:00 Check Patch 1 ea TRDERM BID - Plan Plan:: 1. acute low back pain - due to subacute L2 compression fracture - - still not well controlled - continue with physical therapy/OT - pain control: oxycodone prn, motrin prn, IV morphine prn, continue scheduled lidoderm patch, IV dexamethasone, baclofen, fentanyl patch 2. compression fracture - continue calcitonin-salmon nasal - vitamin D 3. acute hypoxemic respiratory failure - likely due to r. sided CT/CXR changes of fibrosis vs. metastasis vs. atypical pneumonia but these changes are chronic - seen on ct 2011 as well - possible pneumonia - BCx: neg - started azithro, augmentin (06/24) - leukocytosis, at least in part, might relate to the steroids - taper supplemental oxygen as possible - discussed these changes with the patient and patient's son - consider outpatient followup with repeat imaging, pulmonary consult 4. dyslipidemia - treat with simvastatin 6. history of colon cancer status post surgery - ensure regular bowel movements 7. COPD - continue inhalers 8. Constipation - had BM on 06/25/16 - continue colace, add miralax 9. impaired glucose tolerance - follow blood sugars - this is likely due to steroids, will taper code status: DNR DVT prophylaxis: Lovenox discharge plan discussed with the son and our drug coordinator, might need swing bed or NH/Assisted living depending on physical therapy and occupational therapy evaluation
[2016-06-27] MEDS: Lidocaine 5% 700 MG Patch TOP SCH (09:59)
[2016-06-27] MEDS: Check FENTANYL Patch TRDERM SCH (10:17)
[2016-06-27] MEDS: Ibuprofen 600 MG Tab PO PRN (11:12)
--- NOTE | 2016-06-27 12:01 | PCM.DCSUM1 ---
Discharge Summary - Hospital Course Free Text/Narrative:: Admitted for low back pain Discharge to Swing bed 1. acute low back pain - due to subacute L2 compression fracture - - still not well controlled - continue with physical therapy/OT - pain control: oxycodone prn, motrin prn, IV morphine prn, continue scheduled lidoderm patch, IV dexamethasone, baclofen, fentanyl patch 2. compression fracture - continue calcitonin-salmon nasal - vitamin D 3. acute hypoxemic respiratory failure - likely due to r. sided CT/CXR changes of fibrosis vs. metastasis vs. atypical pneumonia but these changes are chronic - seen on ct 2011 as well - possible pneumonia - BCx: neg - started azithro, augmentin (06/24) - leukocytosis, at least in part, might relate to the steroids - taper supplemental oxygen as possible - discussed these changes with the patient and patient's son - consider outpatient followup with repeat imaging, pulmonary consult 4. dyslipidemia - treat with simvastatin 6. history of colon cancer status post surgery - ensure regular bowel movements 7. COPD - continue inhalers 8. Constipation - had BM on 06/25/16 - continue colace, add miralax 9. impaired glucose tolerance - follow blood sugars - this is likely due to steroids, will taper code status: DNR DVT prophylaxis: Lovenox - Discharge Data Discharge Date: 06/27/16 Discharge Disposition: DC/Tfer W/I Hosp To [place] [id number] Condition: Good - Discharge Diagnosis/Problem(s) (1) Low back pain SNOMED Code(s): 732679011 ICD Code: M54.5 - LOW BACK PAIN Status: Acute Current Visit: Yes Qualifiers: (2) Hypertension SNOMED Code(s): 97934282 ICD Code: I10 - ESSENTIAL (PRIMARY) HYPERTENSION Status: Chronic Priority : Medium Current Visit: No Qualifiers: - Patient Instructions Diet: Heart Healthy Diet Activity: As Tolerated - Discharge Plan Home Medications: Home Meds Cholecalciferol (Vitamin D3) [Vitamin D3] 1,000 units PO DAILY 10/22/13 [History ] Docusate Sodium [Colace] 100 mg PO BID 10/22/13 [History] Ibuprofen 600 mg PO Q6H PRN 10/22/13 [History] Simvastatin 10 mg PO BEDTIME 10/22/13 [History] Albuterol Sulfate [Proventil Hfa] 2 puff IH Q6H PRN 07/22/15 [History] Fluticasone/Salmeterol [Advair 250-50 Diskus] 1 puff INH BID 01/07/16 [History] Ipratropium [place] 2 sprays NASBOTH QID PRN 01/07/16 [History] Polyethylene Glycol 3350 [MiraLAX] 17 gm PO DAILY PRN 01/07/16 [History] Acetaminophen [Tylenol] 650 mg PO Q4H PRN #0 tablet 01/21/16 [Rx] Calcitonin ([place]) [Miacalcin Nasal [place]] 1 spray BAYRON DAILY #0 bottle [Rx] Calcium Carbonate/Vitamin D3 [Calcium 600-Vit D3 400 Tablet] 1 each PO DAILY # 30 tablet 01/25/16 [Rx] Multivit-Min/FA/Lycopene/Lut [Centrum Silver Ultra Men's] 1 each PO DAILY #30 tablet 01/25/16 [Rx] Tamsulosin [Flomax] 0.4 mg PO DAILY 06/23/16 [History] Acetaminophen/oxyCODONE [Percocet 325-5 MG] 1 tab PO Q6H PRN #0 tablet 06/27/16 [Rx] Amoxicillin/Clavulanate K [Augmentin 500 MG\125 MG] 1 tab PO Q8HR tablet [Rx] Azithromycin [Zithromax] 250 mg PO DAILY tablet 06/27/16 [Rx] Baclofen [Lioresal] 10 mg PO TID tablet 06/27/16 [Rx] Enoxaparin [Lovenox] 40 mg SUBCUT DAILY syringe 06/27/16 [Rx] Lidocaine 5% [Lidoderm 5%] 700 mg TOP DAILY patch 06/27/16 [Rx] Ondansetron [Zofran] 4 mg IV Q8HR PRN #0 vial 06/27/16 [Rx] Pantoprazole [ProTONIX] 40 mg PO ACBREAKFAST tab.cr 06/27/16 [Rx] Polyethylene Glycol 3350 [MiraLAX] 17 gm PO DAILY packet 06/27/16 [Rx] Remove Patch 1 ea TRDERM BEDTIME each 06/27/16 [Rx] fentaNYL [Duragesic] 12 mcg TRDERM Q72H patch 06/27/16 [Rx] - Discharge Summary/Plan Comment DC Time >30 min.: No - General Info Subjective Update: admitted with acute back pain. pain started suddenly on the day of admission with a h/o multiple compression fx. the pain is still present, worse with activity, moving - like getting out of bed started to use again his back brace the pain is sharp, not radiating, no associated leg neuro deficit no chest pain nor shortness of breath associated with this - Patient Data Vitals - Most Recent: Last Vital Signs Temp 36.9 C 06/27/16 07:45 Pulse 68 06/27/16 07:45 Resp 20 06/27/16 07:45 BP 132/79 06/27/16 07:45 Pulse Ox 96 06/27/16 07:45 Weight - Most Recent: 56.812 kg I&O - Last 24 hours: Intake & Output 06/26/16 06/27/16 06/27/16 22:59 06:59 14:59 Intake Total 720 250 Output Total 300 1300 325 Balance 420 -1050 -325 Med Orders - Current: Current Medications Acetaminophen (Tylenol) 650 mg PO Q4H PRN PRN Reason: Pain Last Admin: 06/24/16 09:08 Dose: 650 mg Albuterol (Proventil Hfa) 0 gm INH Q6H PRN PRN Reason: Wheezing Amoxicillin/Clavulanate Potassium (Augmentin 500 Mg\125 Mg) 1 tab PO Q8HR [facility] Last Admin: 06/27/16 06:10 Dose: 1 tab Azithromycin (Zithromax) 250 mg PO DAILY [facility] Last Admin: 06/27/16 09:32 Dose: 250 mg Baclofen (Lioresal) 10 mg PO TID [facility] Last Admin: 06/27/16 09:30 Dose: 10 mg Calcitonin [place] (Miacalcin Nasal [place]) 0 ml BAYRON DAILY [facility] Last Admin: 06/27/16 09:39 Dose: 1 spray Calcium Carbonate (Calcium Carbonate/Vitamin D 1250 Mg-200 Unit) 1 tab PO DAILY [facility] Last Admin: 06/27/16 09:29 Dose: 1 tab Cholecalciferol (Vitamin D3) 1,000 units PO DAILY [facility] Last Admin: 06/27/16 09:31 Dose: 1,000 units Dexamethasone (Dexamethasone) 4 mg IVPUSH Q6HR [facility] Last Admin: 06/27/16 11:13 Dose: 4 mg Docusate Sodium (Colace) 100 mg PO BID [facility] Last Admin: 06/27/16 09:29 Dose: 100 mg Enoxaparin Sodium (Lovenox) 40 mg SUBCUT DAILY [facility] Last Admin: 06/27/16 09:30 Dose: 40 mg Fentanyl (Duragesic) 12 mcg TRDERM Q72H [facility] Last Admin: 06/26/16 10:46 Dose: 12 mcg Ibuprofen (Motrin) 600 mg PO Q6H PRN PRN Reason: Pain Last Admin: 06/27/16 11:12 Dose: 600 mg Lidocaine (Lidoderm 5%) 700 mg TOP DAILY [facility] Last Admin: 06/27/16 09:59 Dose: 700 mg Miscellaneous Information (Remove Patch) 1 ea TRDERM BEDTIME [facility] Last Admin: 06/27/16 00:00 Dose: 1 ea Miscellaneous Information (Check Patch) 1 ea TRDERM BID [facility] Last Admin: 06/27/16 10:17 Dose: Not Given Mometasone Furoate/Formoterol Fumar (Dulera 200-5 Mcg) 2 puff IH BIDRT [facility] Last Admin: 06/27/16 07:58 Dose: 2 puff Morphine Sulfate (Morphine) 1 mg IVPUSH Q4H PRN PRN Reason: Pain Last Admin: 06/24/16 12:14 Dose: 1 mg Multivitamins/Minerals (Vitamins And Minerals) 1 tab PO DAILY [facility] Last Admin: 06/27/16 09:32 Dose: 1 tab Ondansetron HCl (Zofran) 4 mg IV Q8HR PRN PRN Reason: Nausea/Vomiting Last Admin: 06/25/16 14:04 Dose: 4 mg Oxycodone/Acetaminophen (Percocet 325-5 Mg) 1 tab PO Q6H PRN PRN Reason: Pain Last Admin: 06/27/16 09:08 Dose: 1 tab Pantoprazole Sodium (Protonix) 40 mg PO ACBREAKFAST [facility] Last Admin: 06/27/16 06:10 Dose: 40 mg Ipratropium [place] Nasal Jenkins Pt's Own Med 0 each NASBOTH QID PRN PRN Reason: Rhinitis Polyethylene Glycol (Miralax) 17 gm PO DAILY PRN PRN Reason: Constipation Last Admin: 06/24/16 12:16 Dose: 17 gm Polyethylene Glycol (Miralax) 17 gm PO DAILY [facility] Last Admin: 06/27/16 09:31 Dose: 17 gm Simvastatin (Zocor) 10 mg PO BEDTIME [facility] Last Admin: 06/26/16 20:54 Dose: 10 mg Sodium Chloride (Saline Flush) 10 ml FLUSH ASDIRECTED PRN PRN Reason: Keep Vein Open Last Admin: 06/27/16 11:13 Dose: 10 ml Discontinued Medications Azithromycin (Zithromax) 500 mg PO ONETIME ONE Stop: 06/24/16 08:39 Last Admin: 06/24/16 09:09 Dose: 500 mg Baclofen (Lioresal) 5 mg PO TID [facility] Last Admin: 06/26/16 08:45 Dose: 5 mg Docusate Sodium (Colace) 100 mg PO DAILY PRN PRN Reason: Constipation Last Admin: 06/24/16 09:09 Dose: 100 mg Enoxaparin Sodium (Lovenox) 40 mg SUBCUT ONETIME ONE Stop: 06/23/16 13:20 Last Admin: 06/23/16 14:37 Dose: 40 mg Hydromorphone HCl (Dilaudid) 0.5 mg IVPUSH ONETIME ONE Stop: 06/22/16 18:02 Last Admin: 06/22/16 18:13 Dose: 0.5 mg Lactulose (Cephulac) 20 gm PO BID [facility] Stop: 06/25/16 21:01 Last Admin: 06/25/16 20:33 Dose: Not Given Ondansetron HCl (Zofran) 4 mg IV ONETIME ONE Stop: 06/22/16 18:02 Last Admin: 06/22/16 18:11 Dose: 4 mg Oxycodone/Acetaminophen (Percocet 325-5 Mg) 1 tab PO Q6H [facility] Last Admin: 06/24/16 06:08 Dose: 1 tab Tramadol HCl (Ultram) 50 mg PO Q8HR [facility] Last Admin: 06/23/16 05:31 Dose: 50 mg - Exam Quality Assessment: Reports: supplemental oxygen General: Reports: alert, oriented Neck: Reports: supple Lungs: Reports: Rhonchi (right side) Cardiovascular: Reports: Regular Rate, Regular Rhythm Abdomen: Reports: bowel sounds present, soft, no tenderness, no distension Extremities: Reports: no edema Skin: Reports: warm, dry, intact Neurological: Reports: no new focal deficit Psy/Mental Status: Reports: alert, normal affect, normal mood *Q Meaningful Use (DIS) - VTE *Q VTE Criteria *Q: - Stroke *Q Stroke Criteria *Q: - AMI *Q AMI Criteria *Q:
[2016-06-27 12:17] VITALS: BP 115/63
== END 2016-06-27 12:18 | disposition swing bed (61) | DRG 552 ==
LOC: DL.ED 17:36 → UNDOADMOB 20:10 → DL.MS 20:10 → OBSVTOIN 06-24 09:56
PROVIDERS: ADMIT Internal Medicine; ATTEND Internal Medicine
DX: S32.000A Wedge compression fracture of unspecified lumbar vertebra, initial encounter for closed fracture (principal); R53.1 Weakness; S32.020A Wedge compression fracture of second lumbar vertebra, initial encounter for closed fracture; E78.5 Hyperlipidemia, unspecified; Z85.038 Personal history of other malignant neoplasm of large intestine; J44.9 Chronic obstructive pulmonary disease, unspecified; K59.00 Constipation, unspecified; Z66 Do not resuscitate; I10 Essential (primary) hypertension; M81.0 Age-related osteoporosis without current pathological fracture; Z87.891 Personal history of nicotine dependence; R09.02 Hypoxemia; R35.0 Frequency of micturition
CPT/HCPCS: 36415 ×2; 71010; 72128; 72131; 80053; 81001; 82150; 83605; 83690; 85025 ×2; 85379; 86140; 87040 ×2; 96374; 96375; 97162; 97166; 99284; A9270 ×22; J1170; J1650 ×2; J2270 ×2; J2405; J7050 ×2; 80048; 96372; 96376; 97110-GO; 97530-GO; G0378; J1100

== ENCOUNTER 2016-06-27 12:18 | Inpatient (IN) | payer MEDICARE, BC ==
[2016-06-27] MEDS ORDERED: Ondansetron 4 MG/2 ML SDV IV PRN (12:58)
[2016-06-27] MEDS ORDERED: Albuterol 6.7 GM Inhaler INH PRN (12:58)
[2016-06-27] MEDS ORDERED: IPRATROPIUM BROMIDE NASBOTH PRN (12:58)
[2016-06-27] MEDS ORDERED: Zolpidem 5 MG Tab PO PRN (13:06)
--- NOTE | 2016-06-27 13:06 | PCM.HP ---
H&P History of Present Illness - General Date of Service: 06/27/16 Admit Problem/Dx: back pain - History of Present Illness Initial Comments - Free Text/Narative: h/o L2 compression fracture Presented to with acute on chronic pain was treated in the acute care hospital It was felt that he will need further physical therapy before discharging home or to a longterm The patient has been moderate, low back, nonradiating, worse with movements, better with rest Has been treated with Lidoderm patch, oral and transdermal narcotics, steroids and muscle relaxants - Related Data Allergies/Adverse Reactions: Allergies Allergy/AdvReac Type Severity Reaction Status Date / Time No Known Allergies Allergy Verified 06/22/16 17:09 Home Medications: Home Meds Cholecalciferol (Vitamin D3) [Vitamin D3] 1,000 units PO DAILY 10/22/13 [History ] Docusate Sodium [Colace] 100 mg PO BID 10/22/13 [History] Ibuprofen 600 mg PO Q6H PRN 10/22/13 [History] Simvastatin 10 mg PO BEDTIME 10/22/13 [History] Albuterol Sulfate [Proventil Hfa] 2 puff IH Q6H PRN 07/22/15 [History] Fluticasone/Salmeterol [Advair 250-50 Diskus] 1 puff INH BID 01/07/16 [History] Ipratropium [place] 2 sprays NASBOTH QID PRN 01/07/16 [History] Polyethylene Glycol 3350 [MiraLAX] 17 gm PO DAILY PRN 01/07/16 [History] Acetaminophen [Tylenol] 650 mg PO Q4H PRN #0 tablet 01/21/16 [Rx] Calcitonin ([place]) [Miacalcin Nasal [place]] 1 spray BAYRON DAILY #0 bottle [Rx] Calcium Carbonate/Vitamin D3 [Calcium 600-Vit D3 400 Tablet] 1 each PO DAILY # 30 tablet 01/25/16 [Rx] Multivit-Min/FA/Lycopene/Lut [Centrum Silver Ultra Men's] 1 each PO DAILY #30 tablet 01/25/16 [Rx] Tamsulosin [Flomax] 0.4 mg PO DAILY 06/23/16 [History] Acetaminophen/oxyCODONE [Percocet 325-5 MG] 1 tab PO Q6H PRN #0 tablet 06/27/16 [Rx] Amoxicillin/Clavulanate K [Augmentin 500 MG\125 MG] 1 tab PO Q8HR tablet [Rx] Azithromycin [Zithromax] 250 mg PO DAILY tablet 06/27/16 [Rx] Baclofen [Lioresal] 10 mg PO TID tablet 06/27/16 [Rx] Enoxaparin [Lovenox] 40 mg SUBCUT DAILY syringe 06/27/16 [Rx] Lidocaine 5% [Lidoderm 5%] 700 mg TOP DAILY patch 06/27/16 [Rx] Ondansetron [Zofran] 4 mg IV Q8HR PRN #0 vial 06/27/16 [Rx] Pantoprazole [ProTONIX] 40 mg PO ACBREAKFAST tab.cr 06/27/16 [Rx] Polyethylene Glycol 3350 [MiraLAX] 17 gm PO DAILY packet 06/27/16 [Rx] Remove Patch 1 ea TRDERM BEDTIME each 06/27/16 [Rx] fentaNYL [Duragesic] 12 mcg TRDERM Q72H patch 06/27/16 [Rx] Past Medical History HEENT History: Reports: Cataract, Hard of hearing Other HEENT History: bilateral cataract Cardiovascular History: Reports: High cholesterol, Syncope Respiratory History: Reports: Asthma Gastrointestinal History: Reports: Bowel obstruction, Chronic constipation Other Gastrointestinal History: colon cancer Genitourinary History: Reports: Other (see below) Other Genitourinary History: urinary frequency Musculoskeletal History: Reports: Back pain, chronic, Fracture, Osteoporosis Other Musculoskeletal History: lumbar fusion L4-5. , chronic back pain. Compression fracture 12.27.15 Psychiatric History: Reports: Anxiety Endocrine/Metabolic History: Reports: Osteoporosis Hematologic History: Reports: None Oncologic (Cancer) History: Reports: Colon, Other (see below) Other Oncologic History: skin ca to nose and ear Dermatologic History: Reports: Other (see below) Other Dermatologic History: skin ca on nose and ear - Infectious Disease History Infectious Disease History: Reports: Chicken pox, Measles, Mumps - Past Surgical History HEENT Surgical History: Reports: Adenoidectomy, Cataract surgery, Tonsillectomy Cardiovascular Surgical History: Reports: None Respiratory Surgical History: Reports: None GI Surgical History: Reports: Appendectomy, Colonoscopy, Hernia, inguinal, Other (see below) Other GI Surgeries/Procedures: colon surgery for CA. Small bowel obstruction with surgery at [facility] Right inguinal hernia and abdominal hernia Other Neurological Surgeries/Procedures: Has rods and fused lower back Other Musculoskeletal Surgeries/Procedures:: back surgery Oncologic Surgical History: Reports: Other (see below) Other Oncologic Surgeries/Procedures: hemicolectomy Social & Family History - Family History Family Medical History: Noncontributory - Tobacco Use Smoking Status *Q: Former Smoker Years of Tobacco use: 15 Packs/Tins Daily: 2 Used Tobacco, but Quit: No Month Tobacco Last Used: October Second Hand Smoke Exposure: No - Caffeine Use Caffeine Use: Reports: None - Alcohol Use Days Per Week of Alcohol Use: 0 - Recreational Drug Use Recreational Drug Use: No - Living Situation & Occupation Living situation: Reports: alone H&P Review of Systems - Review of Systems: Review Of Systems: See Below General: Denies: fever Pulmonary: Denies: Shortness of Breath Cardiovascular: Denies: chest pain Gastrointestinal: Reports: Constipation (resolved ). Denies: Abdominal pain Exam - Exam Exam: See Below - Vital Signs Weight: 56.812 kg - Exam General: alert, oriented Neck: supple Lungs: Rhonchi (right side) Cardiovascular: regular rate, regular rhythm Abdomen: normal bowel sounds, soft Back Exam: vertebral tenderness Extremities: No: edema *Q Meaningful Use (ADM) - VTE *Q VTE Criteria *Q: - Stroke *Q Stroke Criteria *Q: - AMI *Q AMI Criteria *Q: - Problem List (1) Low back pain SNOMED Code(s): 428536899 ICD Code: M54.5 - LOW BACK PAIN Status: Acute Current Visit: No Qualifiers: (2) Lumbar compression fracture SNOMED Code(s): 774327930 ICD Code: S32.000A - WEDGE COMPRESSION FRACTURE OF UNSP LUMBAR VERTEBRA, INIT Status: Acute Priority: High Current Visit: No (3) Weakness SNOMED Code(s): 11360937 ICD Code: R53.1 - WEAKNESS Status: Acute Priority: Medium Current Visit : No (4) Hypertension SNOMED Code(s): 71377937 ICD Code: I10 - ESSENTIAL (PRIMARY) HYPERTENSION Status: Chronic Priority : Medium Current Visit: No Qualifiers: Problem List Initiated/Reviewed/Updated: Yes Orders Last 24hrs: Active Orders 24 hr Category Date Time Status Acetaminophen [Tylenol] Med 06/27/16 12:58 Ordered 650 mg PO Q4H PRN Acetaminophen/oxyCODONE [Percocet 325-5 MG] Med 06/27/16 12:58 Ordered 1 tab PO Q6H PRN Albuterol [Proventil HFA] Med 06/27/16 12:58 Ordered 2 puff INH Q6H PRN Amoxicillin/Clavulanate K [Augmentin 500 MG\125 MG] Med 06/27/16 14:00 Ordered 1 tab PO Q8HR Azithromycin [Zithromax] Med 06/28/16 09:00 Ordered 250 mg PO DAILY Baclofen [Lioresal] Med 06/27/16 14:00 Ordered 10 mg PO TID Calcitonin ([place]) [Miacalcin Nasal [place]] Med 06/28/16 09:00 Ordered 1 spray BAYRON DAILY Calcium Carbonate/Vitamin D3 [Calcium 600-Vit D3 400 Med 06/28/16 09:00 Ordered Tablet] 1 each PO DAILY Cholecalciferol (Vitamin D3) [Vitamin D3] Med 06/28/16 09:00 Ordered 1,000 units PO DAILY Docusate Sodium [Colace] Med 06/27/16 21:00 Ordered 100 mg PO BID Enoxaparin [Lovenox] Med 06/28/16 09:00 Ordered 40 mg SUBCUT DAILY Fluticasone/Salmeterol [Advair 250-50 Diskus] Med 06/27/16 21:00 Ordered 1 puff INH BID Ibuprofen [Motrin] Med 06/27/16 12:58 Ordered 600 mg PO Q6H PRN Ipratropium [place] Med 06/27/16 12:58 Ordered 2 sprays NASBOTH QID PRN Lidocaine 5% [Lidoderm 5%] Med 06/28/16 09:00 Ordered 700 mg TOP DAILY Multivit-Min/FA/Lycopene/Lut [Centrum Silver Ultra Men' Med 06/28/16 09:00 Ordered s] 1 each PO DAILY Ondansetron [Zofran] Med 06/27/16 12:58 Ordered 4 mg IV Q8HR PRN Pantoprazole [ProTONIX] Med 06/28/16 06:00 Ordered 40 mg PO ACBREAKFAST Polyethylene Glycol 3350 [MiraLAX] Med 06/28/16 09:00 Ordered 17 gm PO DAILY Remove Patch Med 06/27/16 21:00 Ordered 1 ea TRDERM BEDTIME Simvastatin [Zocor] Med 06/27/16 21:00 Ordered 10 mg PO BEDTIME Tamsulosin [Flomax] Med 06/28/16 09:00 Ordered 0.4 mg PO DAILY fentaNYL [Duragesic] Med 06/27/16 13:00 Ordered 12 mcg TRDERM Q72H Medication Orders Acetaminophen (Tylenol) 650 mg PO Q4H PRN PRN Reason: Pain Albuterol (Proventil Hfa) 0 gm INH Q6H PRN PRN Reason: Wheezing Amoxicillin/Clavulanate Potassium (Augmentin 500 Mg\125 Mg) 1 tab PO Q8HR [facility] Azithromycin (Zithromax) 250 mg PO DAILY [facility] Baclofen (Lioresal) 10 mg PO TID [facility] Calcitonin [place] (Miacalcin Nasal [place]) ml BAYRON DAILY [facility] Enoxaparin Sodium (Lovenox) 40 mg SUBCUT DAILY [facility] Fentanyl (Duragesic) 12 mcg TRDERM Q72H [facility] Ibuprofen (Motrin) 600 mg PO Q6H PRN PRN Reason: Pain Lidocaine (Lidoderm 5%) 700 mg TOP DAILY [facility] Miscellaneous Information (Remove Patch) 1 ea TRDERM BEDTIME [facility] Non-Formulary Medication (Calcium Carbonate/Vitamin D3 [Calcium 600-Vit D3 400 Tablet]) 1 each PO DAILY [facility] Non-Formulary Medication (Cholecalciferol (Vitamin D3) [Vitamin D3]) 1,000 units PO DAILY [facility] Non-Formulary Medication (Docusate Sodium [Colace]) 100 mg PO BID [facility] Non-Formulary Medication (Fluticasone/Salmeterol [Advair 250-50 Diskus]) 1 puff INH BID [facility] Non-Formulary Medication (Ipratropium [place]) 2 sprays NASBOTH QID PRN PRN Reason: Rhinitis Non-Formulary Medication (Multivit-Min/Fa/Lycopene/Lut [Centrum Silver Ultra Men 's]) 1 each PO DAILY [facility] Ondansetron HCl (Zofran) 4 mg IV Q8HR PRN PRN Reason: Nausea Oxycodone/Acetaminophen (Percocet 325-5 Mg) 1 tab PO Q6H PRN PRN Reason: Pain Pantoprazole Sodium (Protonix) 40 mg PO ACBREAKFAST [facility] Polyethylene Glycol (Miralax) 17 gm PO DAILY [facility] Simvastatin (Zocor) 10 mg PO BEDTIME [facility] Tamsulosin HCl (Flomax) 0.4 mg PO DAILY [facility] Assessment/Plan Comment:: 1. acute low back pain - due to subacute L2 compression fracture - - still not well controlled - continue with physical therapy/OT - pain control: oxycodone prn, motrin prn, IV morphine prn, continue scheduled lidoderm patch, IV dexamethasone, baclofen, fentanyl patch 2. compression fracture - continue calcitonin-salmon nasal - vitamin D 3. acute hypoxemic respiratory failure - likely due to r. sided CT/CXR changes of fibrosis vs. metastasis vs. atypical pneumonia but these changes are chronic - seen on ct 2011 as well - possible pneumonia - BCx: neg - started azithro, augmentin (06/24) - leukocytosis, at least in part, might relate to the steroids - taper supplemental oxygen as possible - discussed these changes with the patient and patient's son - consider outpatient followup with repeat imaging, pulmonary consult 4. dyslipidemia - treat with simvastatin 6. history of colon cancer status post surgery - ensure regular bowel movements 7. COPD - continue inhalers 8. Constipation - had BM on 06/25/16 - continue colace, add miralax 9. impaired glucose tolerance - follow blood sugars - this is likely due to steroids, will taper code status: DNR DVT prophylaxis: Lovenox
[2016-06-27] MEDS: Baclofen 10 MG Tab PO SCH ×2 (14:00→21:15)
[2016-06-27] MEDS: Amoxicillin/Clavulanate K 500-125 MG Tab PO SCH ×2 (14:00→21:15)
[2016-06-27] MEDS: Acetaminophen/oxyCODONE 325-5 MG Tab PO PRN ×2 (16:15→22:25)
[2016-06-27] MEDS: Ibuprofen 600 MG Tab PO PRN (19:59)
[2016-06-27] MEDS: Docusate Sodium 100 MG Cap PO SCH (21:15)
[2016-06-27] MEDS: Simvastatin 10 MG Tab PO SCH (21:15)
[2016-06-27] MEDS: Formoterol/Mometasone 200-5 MCG 8.8 GM Inhaler IH SCH (21:16)
[2016-06-27] MEDS: Check Patch TRDERM SCH (21:35)
[2016-06-28] MEDS: Ibuprofen 600 MG Tab PO PRN ×3 (03:49→20:00)
[2016-06-28] MEDS: Pantoprazole 40 MG Tab.CR PO SCH (06:07)
[2016-06-28] MEDS: Amoxicillin/Clavulanate K 500-125 MG Tab PO SCH ×3 (06:07→21:44)
[2016-06-28] MEDS: Acetaminophen/oxyCODONE 325-5 MG Tab PO PRN ×3 (06:11→21:52)
[2016-06-28] MEDS: Polyethylene Glycol 3350 Powder 17 GM Packet PO SCH (08:36)
[2016-06-28] MEDS: Cholecalciferol (Vitamin D3) 400 Unit Tab PO SCH (08:37)
[2016-06-28] MEDS: Calcium Carbonate/Vitamin D3 1250 MG-200 Unit Tab PO SCH (08:38)
[2016-06-28] MEDS: Docusate Sodium 100 MG Cap PO SCH ×2 (08:38→21:44)
[2016-06-28] MEDS: Tamsulosin 0.4 MG Cap.ER PO SCH (08:39)
[2016-06-28] MEDS: Multivitamins,Therapeutic Tab PO SCH (08:39)
[2016-06-28] MEDS: Azithromycin 250 MG Tab PO SCH (08:39)
[2016-06-28] MEDS: Enoxaparin 40 MG/0.4 ML Syringe SUBCUT SCH (08:40)
[2016-06-28] MEDS: Baclofen 10 MG Tab PO SCH ×3 (08:40→21:44)
[2016-06-28] MEDS: Lidocaine 5% 700 MG Patch TOP SCH (08:41)
[2016-06-28] MEDS: Formoterol/Mometasone 200-5 MCG 8.8 GM Inhaler IH SCH ×2 (08:42→21:45)
[2016-06-28] MEDS: Dexamethasone 4 MG Tab PO SCH (08:42)
[2016-06-28] MEDS: Calcitonin (Salmon) Nasal Spray 3.7 ML Bottle NAS SCH (08:43)
[2016-06-28] MEDS: Check Patch TRDERM SCH ×2 (10:04→21:45)
[2016-06-28] MEDS: Simvastatin 10 MG Tab PO SCH (21:44)
[2016-06-29] MEDS: Acetaminophen/oxyCODONE 325-5 MG Tab PO PRN ×3 (03:54→19:54)
[2016-06-29] MEDS: Pantoprazole 40 MG Tab.CR PO SCH (06:23)
[2016-06-29] MEDS: Amoxicillin/Clavulanate K 500-125 MG Tab PO SCH ×3 (06:23→21:35)
[2016-06-29] MEDS: Tamsulosin 0.4 MG Cap.ER PO SCH (08:39)
[2016-06-29] MEDS: Azithromycin 250 MG Tab PO SCH (08:39)
[2016-06-29] MEDS: Cholecalciferol (Vitamin D3) 400 Unit Tab PO SCH (08:40)
[2016-06-29] MEDS: Calcium Carbonate/Vitamin D3 1250 MG-200 Unit Tab PO SCH (08:41)
[2016-06-29] MEDS: Multivitamins,Therapeutic Tab PO SCH (08:41)
[2016-06-29] MEDS: Dexamethasone 4 MG Tab PO SCH (08:41)
[2016-06-29] MEDS: Calcitonin (Salmon) Nasal Spray 3.7 ML Bottle NAS SCH (08:42)
[2016-06-29] MEDS: Docusate Sodium 100 MG Cap PO SCH (08:42)
[2016-06-29] MEDS: Formoterol/Mometasone 200-5 MCG 8.8 GM Inhaler IH SCH ×2 (08:42→20:30)
[2016-06-29] MEDS: Enoxaparin 40 MG/0.4 ML Syringe SUBCUT SCH (08:43)
[2016-06-29] MEDS: Lidocaine 5% 700 MG Patch TOP SCH (08:43)
[2016-06-29] MEDS: Baclofen 10 MG Tab PO SCH ×3 (08:43→20:30)
[2016-06-29] MEDS: Polyethylene Glycol 3350 Powder 17 GM Packet PO SCH (08:44)
[2016-06-29] MEDS: Ibuprofen 600 MG Tab PO PRN ×2 (08:56→14:38)
[2016-06-29] MEDS: Check Patch TRDERM SCH ×2 (08:59→20:08)
[2016-06-29] MEDS: fentaNYL 12 MCG/HR Transdermal Patch TRDERM SCH (09:48)
[2016-06-29] MEDS: Simvastatin 10 MG Tab PO SCH (20:30)
[2016-06-30] MEDS: Docusate Sodium 100 MG Cap PO SCH ×3 (01:59→21:10)
[2016-06-30] MEDS: Amoxicillin/Clavulanate K 500-125 MG Tab PO SCH ×3 (06:17→21:07)
[2016-06-30] MEDS: Pantoprazole 40 MG Tab.CR PO SCH (06:17)
[2016-06-30 06:46] LABS: CHLORIDE,CL 98 mmol/L (101-111); SODIUM,NA 135 mmol/L (135-145)
[2016-06-30] MEDS: Multivitamins,Therapeutic Tab PO SCH (08:38)
[2016-06-30] MEDS: Azithromycin 250 MG Tab PO SCH (08:38)
[2016-06-30] MEDS: Cholecalciferol (Vitamin D3) 400 Unit Tab PO SCH (08:38)
[2016-06-30] MEDS: Tamsulosin 0.4 MG Cap.ER PO SCH (08:39)
[2016-06-30] MEDS: Dexamethasone 4 MG Tab PO SCH (08:39)
[2016-06-30] MEDS: Calcium Carbonate/Vitamin D3 1250 MG-200 Unit Tab PO SCH (08:39)
[2016-06-30] MEDS: Baclofen 10 MG Tab PO SCH ×3 (08:39→21:06)
[2016-06-30] MEDS: Acetaminophen/oxyCODONE 325-5 MG Tab PO PRN ×2 (08:39→15:26)
[2016-06-30] MEDS: Enoxaparin 40 MG/0.4 ML Syringe SUBCUT SCH (08:40)
[2016-06-30] MEDS: Lidocaine 5% 700 MG Patch TOP SCH (08:40)
[2016-06-30] MEDS: Check Patch TRDERM SCH ×2 (08:40→21:15)
[2016-06-30] MEDS: Polyethylene Glycol 3350 Powder 17 GM Packet PO SCH (08:41)
[2016-06-30] MEDS: Formoterol/Mometasone 200-5 MCG 8.8 GM Inhaler IH SCH ×2 (08:41→21:09)
[2016-06-30] MEDS: Calcitonin (Salmon) Nasal Spray 3.7 ML Bottle NAS SCH (08:41)
[2016-06-30] MEDS: Ibuprofen 600 MG Tab PO PRN (19:33)
[2016-06-30] MEDS: Simvastatin 10 MG Tab PO SCH (21:06)
[2016-07-01] MEDS: Pantoprazole 40 MG Tab.CR PO SCH (05:46)
[2016-07-01] MEDS: Amoxicillin/Clavulanate K 500-125 MG Tab PO SCH ×3 (05:46→21:03)
[2016-07-01] MEDS: Acetaminophen/oxyCODONE 325-5 MG Tab PO PRN ×3 (05:46→19:19)
[2016-07-01] MEDS: Calcium Carbonate/Vitamin D3 1250 MG-200 Unit Tab PO SCH (09:11)
[2016-07-01] MEDS: Dexamethasone 4 MG Tab PO SCH (09:13)
[2016-07-01] MEDS: Tamsulosin 0.4 MG Cap.ER PO SCH (09:14)
[2016-07-01] MEDS: Azithromycin 250 MG Tab PO SCH (09:14)
[2016-07-01] MEDS: Lidocaine 5% 700 MG Patch TOP SCH (09:15)
[2016-07-01] MEDS: Baclofen 10 MG Tab PO SCH ×3 (09:16→20:57)
[2016-07-01] MEDS: Ibuprofen 600 MG Tab PO PRN ×2 (09:17→16:32)
[2016-07-01] MEDS: Docusate Sodium 100 MG Cap PO SCH ×2 (09:24→20:57)
[2016-07-01] MEDS: Multivitamins,Therapeutic Tab PO SCH (09:25)
[2016-07-01] MEDS: Calcitonin (Salmon) Nasal Spray 3.7 ML Bottle NAS SCH (09:27)
[2016-07-01] MEDS: Formoterol/Mometasone 200-5 MCG 8.8 GM Inhaler IH SCH ×2 (09:28→20:58)
[2016-07-01] MEDS: Enoxaparin 40 MG/0.4 ML Syringe SUBCUT SCH (09:28)
[2016-07-01] MEDS: Polyethylene Glycol 3350 Powder 17 GM Packet PO SCH (09:29)
[2016-07-01] MEDS: Cholecalciferol (Vitamin D3) 400 Unit Tab PO SCH (09:29)
[2016-07-01] MEDS: Check Patch TRDERM SCH ×2 (09:31→21:19)
[2016-07-01] MEDS: fentaNYL 100 MCG/2 ML SDV IVPUSH PRN ×2 (12:41→16:31)
[2016-07-01] MEDS: Sodium Chloride 0.9% 10 ML Syringe FLUSH PRN ×2 (12:42→20:51)
[2016-07-01] MEDS: Acetaminophen 325 MG Tab PO PRN (18:22)
[2016-07-01] MEDS: Simvastatin 10 MG Tab PO SCH (20:57)
[2016-07-02] MEDS: Pantoprazole 40 MG Tab.CR PO SCH (06:15)
[2016-07-02] MEDS: Amoxicillin/Clavulanate K 500-125 MG Tab PO SCH ×3 (06:15→21:07)
[2016-07-02] MEDS: Ibuprofen 600 MG Tab PO PRN ×2 (07:47→15:09)
[2016-07-02] MEDS: Lidocaine 5% 700 MG Patch TOP SCH (09:19)
[2016-07-02] MEDS: fentaNYL 12 MCG/HR Transdermal Patch TRDERM SCH (09:23)
[2016-07-02] MEDS: Polyethylene Glycol 3350 Powder 17 GM Packet PO SCH (09:28)
[2016-07-02] MEDS: Baclofen 10 MG Tab PO SCH ×3 (09:29→21:02)
[2016-07-02] MEDS: Docusate Sodium 100 MG Cap PO SCH ×2 (09:29→21:03)
[2016-07-02] MEDS: Tamsulosin 0.4 MG Cap.ER PO SCH (09:30)
[2016-07-02] MEDS: Calcium Carbonate/Vitamin D3 1250 MG-200 Unit Tab PO SCH (09:30)
[2016-07-02] MEDS: Multivitamins,Therapeutic Tab PO SCH (09:30)
[2016-07-02] MEDS: Azithromycin 250 MG Tab PO SCH (09:31)
[2016-07-02] MEDS: Dexamethasone 4 MG Tab PO SCH (09:31)
[2016-07-02] MEDS: Check Patch TRDERM SCH ×2 (09:32→21:05)
[2016-07-02] MEDS: Cholecalciferol (Vitamin D3) 400 Unit Tab PO SCH (09:32)
[2016-07-02] MEDS: Enoxaparin 40 MG/0.4 ML Syringe SUBCUT SCH (09:33)
[2016-07-02] MEDS: Calcitonin (Salmon) Nasal Spray 3.7 ML Bottle NAS SCH (09:35)
[2016-07-02] MEDS: Formoterol/Mometasone 200-5 MCG 8.8 GM Inhaler IH SCH ×2 (09:35→21:05)
[2016-07-02] MEDS: Acetaminophen/oxyCODONE 325-5 MG Tab PO PRN (19:11)
[2016-07-02] MEDS: Sodium Chloride 0.9% 10 ML Syringe FLUSH PRN (20:17)
[2016-07-02] MEDS: Simvastatin 10 MG Tab PO SCH (21:03)
[2016-07-03] MEDS: Pantoprazole 40 MG Tab.CR PO SCH (05:32)
[2016-07-03] MEDS: Amoxicillin/Clavulanate K 500-125 MG Tab PO SCH ×3 (05:32→21:05)
[2016-07-03] MEDS: Calcium Carbonate/Vitamin D3 1250 MG-200 Unit Tab PO SCH (08:16)
[2016-07-03] MEDS: Dexamethasone 4 MG Tab PO SCH (08:16)
[2016-07-03] MEDS: Multivitamins,Therapeutic Tab PO SCH (08:16)
[2016-07-03] MEDS: Azithromycin 250 MG Tab PO SCH (08:16)
[2016-07-03] MEDS: Tamsulosin 0.4 MG Cap.ER PO SCH (08:16)
[2016-07-03] MEDS: Acetaminophen/oxyCODONE 325-5 MG Tab PO PRN ×3 (08:16→21:01)
[2016-07-03] MEDS: Cholecalciferol (Vitamin D3) 400 Unit Tab PO SCH (08:16)
[2016-07-03] MEDS: Baclofen 10 MG Tab PO SCH ×3 (08:16→21:01)
[2016-07-03] MEDS: Enoxaparin 40 MG/0.4 ML Syringe SUBCUT SCH (08:17)
[2016-07-03] MEDS: Formoterol/Mometasone 200-5 MCG 8.8 GM Inhaler IH SCH ×2 (08:18→21:04)
[2016-07-03] MEDS: Calcitonin (Salmon) Nasal Spray 3.7 ML Bottle NAS SCH (08:18)
[2016-07-03] MEDS: Lidocaine 5% 700 MG Patch TOP SCH (08:18)
[2016-07-03] MEDS: Check Patch TRDERM SCH ×2 (08:20→21:05)
[2016-07-03] MEDS: Polyethylene Glycol 3350 Powder 17 GM Packet PO SCH (08:24)
[2016-07-03] MEDS: Docusate Sodium 100 MG Cap PO SCH ×2 (08:24→21:04)
[2016-07-03] MEDS: Sodium Chloride 0.9% 10 ML Syringe FLUSH PRN (20:59)
[2016-07-03] MEDS: Simvastatin 10 MG Tab PO SCH (21:04)
[2016-07-04] MEDS: Amoxicillin/Clavulanate K 500-125 MG Tab PO SCH ×3 (05:34→21:19)
[2016-07-04] MEDS: Pantoprazole 40 MG Tab.CR PO SCH (05:34)
[2016-07-04] MEDS: Acetaminophen/oxyCODONE 325-5 MG Tab PO PRN ×3 (05:43→21:24)
[2016-07-04] MEDS: Multivitamins,Therapeutic Tab PO SCH (09:00)
[2016-07-04] MEDS: Cholecalciferol (Vitamin D3) 400 Unit Tab PO SCH (09:00)
[2016-07-04] MEDS: Azithromycin 250 MG Tab PO SCH (09:00)
[2016-07-04] MEDS: Calcium Carbonate/Vitamin D3 1250 MG-200 Unit Tab PO SCH (09:00)
[2016-07-04] MEDS: Dexamethasone 4 MG Tab PO SCH (09:00)
[2016-07-04] MEDS: Lidocaine 5% 700 MG Patch TOP SCH (09:00)
[2016-07-04] MEDS: Baclofen 10 MG Tab PO SCH ×3 (09:00→21:18)
[2016-07-04] MEDS: Tamsulosin 0.4 MG Cap.ER PO SCH (09:00)
[2016-07-04] MEDS: Enoxaparin 40 MG/0.4 ML Syringe SUBCUT SCH (09:00)
[2016-07-04] MEDS: Docusate Sodium 100 MG Cap PO SCH ×2 (09:01→21:19)
[2016-07-04] MEDS: Formoterol/Mometasone 200-5 MCG 8.8 GM Inhaler IH SCH ×2 (09:01→21:17)
[2016-07-04] MEDS: Check Patch TRDERM SCH ×2 (09:01→21:54)
[2016-07-04] MEDS: Calcitonin (Salmon) Nasal Spray 3.7 ML Bottle NAS SCH (09:01)
[2016-07-04] MEDS: Polyethylene Glycol 3350 Powder 17 GM Packet PO SCH (09:02)
--- NOTE | 2016-07-04 12:21 | PN ---
DATE: 07/04/2016 HISTORY OF PRESENT ILLNESS: Mr. Kisha Sandhu is an 86-year-old male with medical history significant for chronic obstructive pulmonary disease, hypertension, and hyperlipidemia, recently admitted to the acute care setting with compression fracture involving the lumbar spine, and also had some changes on his chest x-ray consistent with pleural thickening for which he is scheduled for outpatient followup as discussed with Dr. Joshi and also the family members. He is currently in swing bed requiring more physical therapy and more pain control. For the last 24 hours, the patient is continued on fentanyl patch and Lidoderm patch. He is continued on oral pain medications. The patient claims that his pain seems to be improved this morning. He denies any chest pain. No shortness of breath. No abdominal pain. No nausea. No vomiting. No diarrhea. His nutritional intake has been on the lower side. REVIEW OF SYSTEMS: Cardiovascular, respiratory, gastrointestinal, neurology, constitutional were all evaluated. PHYSICAL EXAMINATION: Vital signs: Temperature of. 97.6, pulse of 57, blood pressure 116/56, respiratory rate of 20, saturating at 94% on room air. General Appearance: The patient is well oriented to time, place, and person. Follows commands spontaneously. Cardiovascular System: S1 and S2 heard with normal intensity. No gallops. Respiratory: Clear to auscultation bilaterally. No wheeze. No crepitations. Abdomen: Soft. Bowel sounds positive. Nontender. No rigidity. Extremities: No edema in bilateral lower extremities. Neurology: No gross focal neurological deficit. MEDICATIONS: Reviewed. 1. Tylenol 650 mg every 4 hours as needed for pain. 2. Albuterol inhalation every 6 hours as needed for wheezing. 3. Augmentin one tablet q.8 hours schedule. 4. Zithromax 250 mg daily. 5. Baclofen 10 mg three times a day. 6. Calcitonin nasal daily. 7. Vitamin D3, 1000 units daily. 8. Dexamethasone 4 mg daily. 9. Docusate sodium 100 mg twice a day. 10.Lovenox 40 mg subcutaneous daily. 11.Fentanyl patch 12 mcg q.72hours. 12.Ibuprofen 600 mg every 6 hours as needed for pain. 13.Lidoderm patch topical daily. 14.Protonix 40 mg daily. 15.Percocet 5/325 mg every 6 hours as needed for pain. 16.Polyethylene glycol 17 g p.o. daily. 17.Zocor 10 mg at bedtime. 18.Flomax 0.4 mg daily. 19.Ambien 5 mg as needed for sleep. LABORATORY DATA: No new labs ordered for today. ASSESSMENT: 1. Acute severe compression deformity of the L2 with increased loss of height and old to [id number] compression deformities at T6, T8, T9, T12 and L1. 2. Abnormal findings on the x-ray of the chest with pleural thickening. 3. Possible pneumonia. 4. Hypertension. 5. Hyperlipidemia. 6. Chronic obstructive pulmonary disease. 7. Opioid medication use. 8. Acute hypoxic respiratory failure. PLAN: 1. Compression fracture. The patient is noted to have acute L2 compression fracture along with old compression fractures involving the thoracic spine. The patient is put on a brace. He is on Lidoderm patch, fentanyl patch per oral Percocet which seems to be improving his pain. There were episodes of confusion noticed by the nursing staff, but this morning, he is well oriented to time, place, and person. These episodes of confusion could be resulting from opiate pain medications also. The patient will need a referral to outpatient pain management once he is more stable, and possible Neurosurgery consultation as an outpatient also. The patient does not have any focal neurological deficit appreciated at this time. He might benefit from getting an MRI scan down the road. 2. Abnormal x-ray. The patient was noted to have acute hypoxic respiratory failure at the time of admission, possible pneumonia. He is currently on oral antibiotics, continue the same. So far, cultures remain negative, one might consider holding off the antibiotics once the course is done. The patient also has chronic changes noted on the x-ray and CT scan of the chest, this will be followed as an outpatient as discussed with family members and also with Dr. Joshi. 3. Chronic obstructive pulmonary disease, inhalation treatment as needed. The patient is encouraged to use incentive spirometer. 4. Constipation could be resulting from opiate pain medication use, continue with stool softeners. 5. Discussed with family members at bedside. [facility] /[id number]
[2016-07-04] MEDS: Simvastatin 10 MG Tab PO SCH (21:19)
[2016-07-05] MEDS: Pantoprazole 40 MG Tab.CR PO SCH (05:58)
[2016-07-05] MEDS: Amoxicillin/Clavulanate K 500-125 MG Tab PO SCH (05:58)
[2016-07-05] MEDS: Acetaminophen/oxyCODONE 325-5 MG Tab PO PRN ×2 (06:02→14:43)
[2016-07-05] MEDS: fentaNYL 12 MCG/HR Transdermal Patch TRDERM SCH (08:27)
[2016-07-05] MEDS: Check Patch TRDERM SCH ×2 (08:34→21:14)
[2016-07-05] MEDS: Lidocaine 5% 700 MG Patch TOP SCH (08:34)
[2016-07-05] MEDS: Docusate Sodium 100 MG Cap PO SCH ×2 (08:38→21:12)
[2016-07-05] MEDS: Polyethylene Glycol 3350 Powder 17 GM Packet PO SCH (08:39)
[2016-07-05] MEDS: Enoxaparin 40 MG/0.4 ML Syringe SUBCUT SCH (08:39)
[2016-07-05] MEDS: Calcitonin (Salmon) Nasal Spray 3.7 ML Bottle NAS SCH (08:41)
[2016-07-05] MEDS: Formoterol/Mometasone 200-5 MCG 8.8 GM Inhaler IH SCH ×2 (08:41→21:13)
[2016-07-05] MEDS: Tamsulosin 0.4 MG Cap.ER PO SCH (08:43)
[2016-07-05] MEDS: Dexamethasone 4 MG Tab PO SCH (08:43)
[2016-07-05] MEDS: Calcium Carbonate/Vitamin D3 1250 MG-200 Unit Tab PO SCH (08:43)
[2016-07-05] MEDS: Baclofen 10 MG Tab PO SCH ×3 (08:44→21:12)
[2016-07-05] MEDS: Azithromycin 250 MG Tab PO SCH (08:45)
[2016-07-05] MEDS: Multivitamins,Therapeutic Tab PO SCH (08:45)
[2016-07-05] MEDS: Cholecalciferol (Vitamin D3) 400 Unit Tab PO SCH (08:46)
[2016-07-05] MEDS: Sodium Chloride 0.9% 10 ML Syringe FLUSH PRN (08:51)
[2016-07-05] MEDS: Ibuprofen 600 MG Tab PO PRN ×2 (09:59→21:19)
[2016-07-05] MEDS: Simvastatin 10 MG Tab PO SCH (21:12)
[2016-07-06] MEDS: Ibuprofen 600 MG Tab PO PRN ×2 (04:59→17:43)
[2016-07-06] MEDS: Pantoprazole 40 MG Tab.CR PO SCH (05:00)
[2016-07-06] MEDS: Calcium Carbonate/Vitamin D3 1250 MG-200 Unit Tab PO SCH (08:57)
[2016-07-06] MEDS: Dexamethasone 4 MG Tab PO SCH (08:57)
[2016-07-06] MEDS: Formoterol/Mometasone 200-5 MCG 8.8 GM Inhaler IH SCH ×2 (08:58→22:18)
[2016-07-06] MEDS: Tamsulosin 0.4 MG Cap.ER PO SCH (08:59)
[2016-07-06] MEDS: Lidocaine 5% 700 MG Patch TOP SCH (09:00)
[2016-07-06] MEDS: Enoxaparin 40 MG/0.4 ML Syringe SUBCUT SCH (09:00)
[2016-07-06] MEDS: Baclofen 10 MG Tab PO SCH ×3 (09:00→22:18)
[2016-07-06] MEDS: Calcitonin (Salmon) Nasal Spray 3.7 ML Bottle NAS SCH (09:01)
[2016-07-06] MEDS: Cholecalciferol (Vitamin D3) 400 Unit Tab PO SCH (09:02)
[2016-07-06] MEDS: Multivitamins,Therapeutic Tab PO SCH (09:02)
[2016-07-06] MEDS: Polyethylene Glycol 3350 Powder 17 GM Packet PO SCH (09:03)
[2016-07-06] MEDS: Check Patch TRDERM SCH ×2 (09:04→22:27)
[2016-07-06] MEDS: Docusate Sodium 100 MG Cap PO SCH ×2 (09:04→22:18)
[2016-07-06] MEDS: Sodium Chloride 0.9% 10 ML Syringe FLUSH PRN (10:23)
[2016-07-06] MEDS: Acetaminophen/oxyCODONE 325-5 MG Tab PO PRN (11:18)
[2016-07-06] MEDS: Simvastatin 10 MG Tab PO SCH (22:19)
[2016-07-07] MEDS: Pantoprazole 40 MG Tab.CR PO SCH (06:37)
[2016-07-07] MEDS: Ibuprofen 600 MG Tab PO PRN ×3 (06:38→20:51)
[2016-07-07] MEDS: Multivitamins,Therapeutic Tab PO SCH (09:29)
[2016-07-07] MEDS: Tamsulosin 0.4 MG Cap.ER PO SCH (09:29)
[2016-07-07] MEDS: Dexamethasone 4 MG Tab PO SCH (09:30)
[2016-07-07] MEDS: Cholecalciferol (Vitamin D3) 400 Unit Tab PO SCH (09:31)
[2016-07-07] MEDS: Calcium Carbonate/Vitamin D3 1250 MG-200 Unit Tab PO SCH (09:31)
[2016-07-07] MEDS: Check Patch TRDERM SCH ×2 (09:31→21:02)
[2016-07-07] MEDS: Baclofen 10 MG Tab PO SCH ×3 (09:33→20:50)
[2016-07-07] MEDS: Formoterol/Mometasone 200-5 MCG 8.8 GM Inhaler IH SCH ×2 (09:33→21:01)
[2016-07-07] MEDS: Calcitonin (Salmon) Nasal Spray 3.7 ML Bottle NAS SCH (09:34)
[2016-07-07] MEDS: Enoxaparin 40 MG/0.4 ML Syringe SUBCUT SCH (09:34)
[2016-07-07] MEDS: Sodium Chloride 0.9% 10 ML Syringe FLUSH PRN (09:36)
[2016-07-07] MEDS: Polyethylene Glycol 3350 Powder 17 GM Packet PO SCH (09:39)
[2016-07-07] MEDS: Docusate Sodium 100 MG Cap PO SCH ×2 (09:40→21:01)
[2016-07-07] MEDS: Lidocaine 5% 700 MG Patch TOP SCH (09:40)
[2016-07-07] MEDS: Simvastatin 10 MG Tab PO SCH (20:51)
[2016-07-08] MEDS: Ibuprofen 600 MG Tab PO PRN ×3 (05:49→20:39)
[2016-07-08] MEDS: Pantoprazole 40 MG Tab.CR PO SCH (05:50)
[2016-07-08] MEDS: Cholecalciferol (Vitamin D3) 400 Unit Tab PO SCH (10:51)
[2016-07-08] MEDS: Calcium Carbonate/Vitamin D3 1250 MG-200 Unit Tab PO SCH (10:51)
[2016-07-08] MEDS: Dexamethasone 2 MG Tab PO SCH (10:52)
[2016-07-08] MEDS: Multivitamins,Therapeutic Tab PO SCH (10:52)
[2016-07-08] MEDS: Baclofen 10 MG Tab PO SCH ×3 (10:52→20:37)
[2016-07-08] MEDS: Enoxaparin 40 MG/0.4 ML Syringe SUBCUT SCH (10:53)
[2016-07-08] MEDS: Tamsulosin 0.4 MG Cap.ER PO SCH (10:54)
[2016-07-08] MEDS: Docusate Sodium 100 MG Cap PO SCH ×2 (10:54→20:37)
[2016-07-08] MEDS: Polyethylene Glycol 3350 Powder 17 GM Packet PO SCH (10:54)
[2016-07-08] MEDS: Lidocaine 5% 700 MG Patch TOP SCH (10:55)
[2016-07-08] MEDS: fentaNYL 12 MCG/HR Transdermal Patch TRDERM SCH (10:56)
[2016-07-08] MEDS: Formoterol/Mometasone 200-5 MCG 8.8 GM Inhaler IH SCH ×2 (11:07→20:38)
[2016-07-08] MEDS: Calcitonin (Salmon) Nasal Spray 3.7 ML Bottle NAS SCH (11:08)
[2016-07-08] MEDS: Check Patch TRDERM SCH ×2 (11:08→20:37)
[2016-07-08] MEDS: Sodium Chloride 0.9% 10 ML Syringe FLUSH PRN (20:35)
[2016-07-08] MEDS: Simvastatin 10 MG Tab PO SCH (20:37)
[2016-07-09] MEDS: Pantoprazole 40 MG Tab.CR PO SCH (05:17)
[2016-07-09] MEDS: Ibuprofen 600 MG Tab PO PRN ×2 (05:21→11:07)
[2016-07-09] MEDS: Baclofen 10 MG Tab PO SCH ×3 (08:53→20:35)
[2016-07-09] MEDS: Dexamethasone 2 MG Tab PO SCH (08:54)
[2016-07-09] MEDS: Tamsulosin 0.4 MG Cap.ER PO SCH (08:54)
[2016-07-09] MEDS: Cholecalciferol (Vitamin D3) 400 Unit Tab PO SCH (08:54)
[2016-07-09] MEDS: Multivitamins,Therapeutic Tab PO SCH (08:54)
[2016-07-09] MEDS: Enoxaparin 40 MG/0.4 ML Syringe SUBCUT SCH (08:55)
[2016-07-09] MEDS: Calcium Carbonate/Vitamin D3 1250 MG-200 Unit Tab PO SCH (08:55)
[2016-07-09] MEDS: Lidocaine 5% 700 MG Patch TOP SCH (08:55)
[2016-07-09] MEDS: Polyethylene Glycol 3350 Powder 17 GM Packet PO SCH (09:00)
[2016-07-09] MEDS: Docusate Sodium 100 MG Cap PO SCH ×2 (09:00→20:31)
[2016-07-09] MEDS: Calcitonin (Salmon) Nasal Spray 3.7 ML Bottle NAS SCH (09:01)
[2016-07-09] MEDS: Formoterol/Mometasone 200-5 MCG 8.8 GM Inhaler IH SCH ×2 (09:02→20:35)
[2016-07-09] MEDS: Check Patch TRDERM SCH ×2 (09:08→20:34)
[2016-07-09] MEDS: Acetaminophen 325 MG Tab PO PRN (14:43)
[2016-07-09] MEDS: Simvastatin 10 MG Tab PO SCH (20:35)
[2016-07-09] MEDS: Acetaminophen/oxyCODONE 325-5 MG Tab PO PRN (20:36)
[2016-07-10] MEDS: Pantoprazole 40 MG Tab.CR PO SCH (05:44)
[2016-07-10] MEDS: Ibuprofen 600 MG Tab PO PRN ×2 (05:54→11:57)
[2016-07-10] MEDS: Cholecalciferol (Vitamin D3) 400 Unit Tab PO SCH (09:03)
[2016-07-10] MEDS: Tamsulosin 0.4 MG Cap.ER PO SCH (09:03)
[2016-07-10] MEDS: Dexamethasone 2 MG Tab PO SCH (09:04)
[2016-07-10] MEDS: Baclofen 10 MG Tab PO SCH ×3 (09:04→20:36)
[2016-07-10] MEDS: Polyethylene Glycol 3350 Powder 17 GM Packet PO SCH (09:05)
[2016-07-10] MEDS: Calcium Carbonate/Vitamin D3 1250 MG-200 Unit Tab PO SCH (09:05)
[2016-07-10] MEDS: Multivitamins,Therapeutic Tab PO SCH (09:05)
[2016-07-10] MEDS: Docusate Sodium 100 MG Cap PO SCH ×2 (09:05→20:35)
[2016-07-10] MEDS: Enoxaparin 40 MG/0.4 ML Syringe SUBCUT SCH (09:05)
[2016-07-10] MEDS: Lidocaine 5% 700 MG Patch TOP SCH (09:06)
[2016-07-10] MEDS: Formoterol/Mometasone 200-5 MCG 8.8 GM Inhaler IH SCH ×2 (09:10→20:33)
[2016-07-10] MEDS: Calcitonin (Salmon) Nasal Spray 3.7 ML Bottle NAS SCH (09:12)
[2016-07-10] MEDS: Check Patch TRDERM SCH ×2 (09:13→20:32)
[2016-07-10] MEDS: Simvastatin 10 MG Tab PO SCH (20:36)
--- NOTE | 2016-07-11 05:23 | PN ---
DATE: 07/08/2016 SUBJECTIVE: Mr. Beard is an 86-year-old gentleman who was admitted to swing bed for ongoing recovery from an acute L2 compression fracture, which was spontaneous. He initially presented with acute on chronic low back pain and was initially in acute care and then admitted to swing bed for ongoing work with Physical and Occupational Therapy. Staff notes that he has done well with therapy, but at times refuses sessions. His mood is improved. He is ambulatory with his walker. Review of his clinical data shows that he is taking in adequate fluids. He is voiding and moving his bowels. His appetite is good, and he is tolerating his diet. Vital signs are stable, and he is afebrile. Weight is stable. His medications are reviewed. He continues on Lidoderm patch and p.r.n. oxycodone with Tylenol. He is taking very little of the p.r.n. oxycodone. He has been on and decreasing doses of oral dexamethasone, and today, we decreased his oral dexamethasone from 4 mg to 3 mg. We will continue this for 1 more week, and at that time, we will reduce his dexamethasone to 2 mg. Labs were repeated today. Previous labs were done on June 30. White count has come down to 13,300, hemoglobin and hematocrit 10.8 and 34.2, and platelets 224,000. Mr. Beard was sleeping soundly at the time of our initial visit, and we did not wake him. Later, we spoke to him while he was working with therapy and he voiced no concerns or complaints. A care conference is scheduled for July 12. At this time, discharge date is open, and there was consideration being given to admission to [facility], but these plans have not been finalized. He continues to do well. [facility] /[id number] BRIAN
[2016-07-11] MEDS: Pantoprazole 40 MG Tab.CR PO SCH (05:30)
[2016-07-11] MEDS: Calcitonin (Salmon) Nasal Spray 3.7 ML Bottle NAS SCH (09:29)
[2016-07-11] MEDS: Formoterol/Mometasone 200-5 MCG 8.8 GM Inhaler IH SCH ×2 (09:30→21:20)
[2016-07-11] MEDS: Lidocaine 5% 700 MG Patch TOP SCH (09:30)
[2016-07-11] MEDS: fentaNYL 12 MCG/HR Transdermal Patch TRDERM SCH (09:31)
[2016-07-11] MEDS: Polyethylene Glycol 3350 Powder 17 GM Packet PO SCH (09:31)
[2016-07-11] MEDS: Baclofen 10 MG Tab PO SCH ×3 (09:35→21:12)
[2016-07-11] MEDS: Enoxaparin 40 MG/0.4 ML Syringe SUBCUT SCH (09:35)
[2016-07-11] MEDS: Docusate Sodium 100 MG Cap PO SCH ×2 (09:36→21:08)
[2016-07-11] MEDS: Dexamethasone 2 MG Tab PO SCH (09:36)
[2016-07-11] MEDS: Multivitamins,Therapeutic Tab PO SCH (09:36)
[2016-07-11] MEDS: Calcium Carbonate/Vitamin D3 1250 MG-200 Unit Tab PO SCH (09:36)
[2016-07-11] MEDS: Check Patch TRDERM SCH ×2 (09:37→21:07)
[2016-07-11] MEDS: Cholecalciferol (Vitamin D3) 400 Unit Tab PO SCH (10:45)
[2016-07-11] MEDS: Tamsulosin 0.4 MG Cap.ER PO SCH (10:45)
[2016-07-11] MEDS: Ibuprofen 600 MG Tab PO PRN (14:38)
--- NOTE | 2016-07-11 16:14 | CR ---
Clinical history: 86-year-old male history short of breath. Interpretation: Upright PA/lateral chest films abnormal unchanged except for technique since 2016.. *Extensive abnormal interstitial pattern and asymmetric dense pleural thickening on the right as not ed on 22 June 2016 exam (old trauma or TB possible but cannot exclude mesothelioma). Dense calcifications ectatic aorta and borderline cardiomegaly with generalized venous congestion/ce phalization. No alveolar edema or dependent new pleural fluid accumulation. o new lung mass, hilar lymphadenopathy or focal lobar pneumonia.
[2016-07-11] MEDS: Acetaminophen 325 MG Tab PO PRN ×2 (17:00→21:17)
[2016-07-11] MEDS: Simvastatin 10 MG Tab PO SCH (21:12)
[2016-07-12] MEDS: Pantoprazole 40 MG Tab.CR PO SCH (06:14)
[2016-07-12] MEDS: Cholecalciferol (Vitamin D3) 400 Unit Tab PO SCH (10:24)
[2016-07-12] MEDS: Tamsulosin 0.4 MG Cap.ER PO SCH (10:27)
[2016-07-12] MEDS: Docusate Sodium 100 MG Cap PO SCH ×2 (10:27→20:33)
[2016-07-12] MEDS: Dexamethasone 2 MG Tab PO SCH (10:27)
[2016-07-12] MEDS: Baclofen 10 MG Tab PO SCH ×3 (10:28→20:34)
[2016-07-12] MEDS: Multivitamins,Therapeutic Tab PO SCH (10:28)
[2016-07-12] MEDS: Calcium Carbonate/Vitamin D3 1250 MG-200 Unit Tab PO SCH (10:28)
[2016-07-12] MEDS: Polyethylene Glycol 3350 Powder 17 GM Packet PO SCH (10:29)
[2016-07-12] MEDS: Formoterol/Mometasone 200-5 MCG 8.8 GM Inhaler IH SCH ×2 (10:29→20:37)
[2016-07-12] MEDS: Enoxaparin 40 MG/0.4 ML Syringe SUBCUT SCH (10:30)
[2016-07-12] MEDS: Calcitonin (Salmon) Nasal Spray 3.7 ML Bottle NAS SCH (10:30)
[2016-07-12] MEDS: Check Patch TRDERM SCH ×2 (10:33→20:32)
[2016-07-12] MEDS: Lidocaine 5% 700 MG Patch TOP SCH (10:33)
[2016-07-12] MEDS: Simvastatin 10 MG Tab PO SCH (20:34)
[2016-07-13] MEDS: Pantoprazole 40 MG Tab.CR PO SCH (05:46)
[2016-07-13] MEDS: Tamsulosin 0.4 MG Cap.ER PO SCH (09:06)
[2016-07-13] MEDS: Dexamethasone 2 MG Tab PO SCH (09:06)
[2016-07-13] MEDS: Multivitamins,Therapeutic Tab PO SCH (09:06)
[2016-07-13] MEDS: Calcitonin (Salmon) Nasal Spray 3.7 ML Bottle NAS SCH (09:06)
[2016-07-13] MEDS: Baclofen 10 MG Tab PO SCH ×3 (09:06→21:46)
[2016-07-13] MEDS: Calcium Carbonate/Vitamin D3 1250 MG-200 Unit Tab PO SCH (09:06)
[2016-07-13] MEDS: Cholecalciferol (Vitamin D3) 400 Unit Tab PO SCH (09:07)
[2016-07-13] MEDS: Formoterol/Mometasone 200-5 MCG 8.8 GM Inhaler IH SCH ×2 (09:07→21:49)
[2016-07-13] MEDS: Acetaminophen 325 MG Tab PO PRN (09:08)
[2016-07-13] MEDS: Enoxaparin 40 MG/0.4 ML Syringe SUBCUT SCH (09:10)
[2016-07-13] MEDS: Lidocaine 5% 700 MG Patch TOP SCH (09:11)
[2016-07-13] MEDS: Polyethylene Glycol 3350 Powder 17 GM Packet PO SCH (09:12)
[2016-07-13] MEDS: Check Patch TRDERM SCH ×2 (09:12→21:51)
[2016-07-13] MEDS: Docusate Sodium 100 MG Cap PO SCH ×2 (09:12→21:47)
--- NOTE | 2016-07-13 16:19 | PCM.PN ---
- General Info Date of Service: 07/13/16 Subjective Update: Nursing staff reported two days ago that he had a desaturation on exertion. Repeat chest xray showed no new acute findings. he started on incentive spirometry. today, patient denies any shortness of breath. he has been doing the spirometry. reports that pain is controlled although sometimes he gets a pain score 2-3/10 occasionally. as for his BM, cannot clearly monitor his BM, reports that nursing staff is charting it. otherwise, no issues reported during the encounter. - Patient Data Vitals - most recent: Last Vital Signs Temp 36.3 C 07/13/16 07:00 Pulse 61 07/13/16 07:00 Resp 20 07/13/16 07:00 BP 123/59 L 07/13/16 07:00 Pulse Ox 96 07/13/16 07:00 Weight - most recent: 56.722 kg I&O - last 24 hours: Intake & Output 07/13/16 07/13/16 07/13/16 06:59 14:59 22:59 Intake Total 625 Balance 625 Med Orders - Current: Current Medications Acetaminophen (Tylenol) 650 mg PO Q4H PRN PRN Reason: Pain Last Admin: 07/13/16 09:08 Dose: 650 mg Albuterol (Proventil Hfa) 0 gm INH Q6H PRN PRN Reason: Wheezing Baclofen (Lioresal) 10 mg PO TID [facility] Last Admin: 07/13/16 13:06 Dose: 10 mg Calcitonin [place] (Miacalcin Nasal [place]) 0 ml [place] DAILY [facility] Last Admin: 07/13/16 09:06 Dose: 1 spray Calcium Carbonate (Calcium Carbonate/Vitamin D 1250 Mg-200 Unit) 1 tab PO DAILY [facility] Last Admin: 07/13/16 09:06 Dose: 1 tab Cholecalciferol (Vitamin D3) 1,000 units PO DAILY [facility] Last Admin: 07/13/16 09:07 Dose: 1,000 units Dexamethasone (Dexamethasone) 3 mg PO DAILY [facility] Stop: 07/15/16 09:01 Last Admin: 07/13/16 09:06 Dose: 3 mg Docusate Sodium (Colace) 100 mg PO BID [facility] Last Admin: 07/13/16 09:12 Dose: Not Given Enoxaparin Sodium (Lovenox) 40 mg SUBCUT DAILY [facility] Last Admin: 07/13/16 09:10 Dose: 40 mg Fentanyl (Duragesic) 12 mcg TRDERM Q72H [facility] Last Admin: 07/11/16 09:31 Dose: 12 mcg Ibuprofen (Motrin) 600 mg PO Q6H PRN PRN Reason: Pain Last Admin: 07/11/16 14:38 Dose: 600 mg Lidocaine (Lidoderm 5%) 700 mg TOP DAILY [facility] Last Admin: 07/13/16 09:11 Dose: 700 mg Miscellaneous Information (Check Patch) 1 ea TRDERM BID [facility] Last Admin: 07/13/16 09:12 Dose: 1 ea Miscellaneous Information (Remove Patch) 1 ea TRDERM Q72H [facility] Last Admin: 07/11/16 10:46 Dose: Not Given Miscellaneous Information (Remove Patch) 1 ea TRDERM BEDTIME [facility] Last Admin: 07/12/16 20:34 Dose: Not Given Mometasone Furoate/Formoterol Fumar (Dulera 200-5 Mcg) 2 puff IH BID [facility] Last Admin: 07/13/16 09:07 Dose: 2 puff Multivitamins (Thera) 1 each PO DAILY [facility] Last Admin: 07/13/16 09:06 Dose: 1 each Oxycodone/Acetaminophen (Percocet 325-5 Mg) 1 tab PO Q6H PRN PRN Reason: Pain Last Admin: 07/09/16 20:36 Dose: 1 tab Pantoprazole Sodium (Protonix) 40 mg PO ACBREAKFAST [facility] Last Admin: 07/13/16 05:46 Dose: 40 mg Ipratropium [place] (Pt's Own Med) 2 each NASBOTH QID PRN PRN Reason: Rhinitis Polyethylene Glycol (Miralax) 17 gm PO DAILY [facility] Last Admin: 07/13/16 09:12 Dose: Not Given Simvastatin (Zocor) 10 mg PO BEDTIME [facility] Last Admin: 07/12/16 20:34 Dose: 10 mg Sodium Chloride (Saline Flush) 10 ml FLUSH ASDIRECTED PRN PRN Reason: Keep Vein Open Last Admin: 07/08/16 20:35 Dose: 10 ml Tamsulosin HCl (Flomax) 0.4 mg PO DAILY [facility] Last Admin: 07/13/16 09:06 Dose: 0.4 mg Zolpidem Tartrate (Ambien) 5 mg PO BEDTIME PRN PRN Reason: Sleep Discontinued Medications Amoxicillin/Clavulanate Potassium (Augmentin 500 Mg\125 Mg) 1 tab PO Q8HR [facility] Last Admin: 07/05/16 05:58 Dose: 1 tab Azithromycin (Zithromax) 250 mg PO DAILY [facility] [place] Last Admin: 07/05/16 08:45 Dose: 250 mg Dexamethasone (Dexamethasone) 4 mg PO DAILY [facility] [place] Last Admin: 07/07/16 09:30 Dose: 4 mg Fentanyl (Sublimaze) 50 mcg IVPUSH Q2H PRN PRN Reason: Pain (severe 7-10) Last Admin: 07/01/16 16:31 Dose: 50 mcg Ondansetron HCl (Zofran) 4 mg IV Q8HR PRN PRN Reason: Nausea - Exam General: alert, oriented Lungs: Normal respiratory effort Abdomen: bowel sounds present, soft, no tenderness - Problem List Review Problem List Initiated/Reviewed/Updated: Yes - Plan Plan:: Patient has been doing good with physical therapy for his compression fracture and his pain has been stable as of now. No new changes to be made on his current treatment regimen. Monitor regularity of BM given his narcotic use. Encourage incentive spirometry. May need placement eventually.
[2016-07-13] MEDS: Simvastatin 10 MG Tab PO SCH (21:46)
[2016-07-14] MEDS: Pantoprazole 40 MG Tab.CR PO SCH (07:06)
[2016-07-14] MEDS: fentaNYL 12 MCG/HR Transdermal Patch TRDERM SCH (09:08)
[2016-07-14] MEDS: Calcium Carbonate/Vitamin D3 1250 MG-200 Unit Tab PO SCH (09:08)
[2016-07-14] MEDS: Docusate Sodium 100 MG Cap PO SCH ×2 (09:08→21:46)
[2016-07-14] MEDS: Cholecalciferol (Vitamin D3) 400 Unit Tab PO SCH (09:08)
[2016-07-14] MEDS: Dexamethasone 2 MG Tab PO SCH (09:08)
[2016-07-14] MEDS: Multivitamins,Therapeutic Tab PO SCH (09:08)
[2016-07-14] MEDS: Tamsulosin 0.4 MG Cap.ER PO SCH (09:08)
[2016-07-14] MEDS: Baclofen 10 MG Tab PO SCH ×3 (09:08→21:45)
[2016-07-14] MEDS: Polyethylene Glycol 3350 Powder 17 GM Packet PO SCH (09:10)
[2016-07-14] MEDS: Check Patch TRDERM SCH ×2 (09:10→21:46)
[2016-07-14] MEDS: Lidocaine 5% 700 MG Patch TOP SCH (09:10)
[2016-07-14] MEDS: Enoxaparin 40 MG/0.4 ML Syringe SUBCUT SCH (09:10)
[2016-07-14] MEDS: Formoterol/Mometasone 200-5 MCG 8.8 GM Inhaler IH SCH ×2 (09:11→21:47)
[2016-07-14] MEDS: Calcitonin (Salmon) Nasal Spray 3.7 ML Bottle NAS SCH (09:11)
[2016-07-14] MEDS: Simvastatin 10 MG Tab PO SCH (21:44)
[2016-07-15] MEDS: Pantoprazole 40 MG Tab.CR PO SCH (05:43)
[2016-07-15] MEDS: Baclofen 10 MG Tab PO SCH ×3 (09:19→20:53)
[2016-07-15] MEDS: Multivitamins,Therapeutic Tab PO SCH (09:19)
[2016-07-15] MEDS: Dexamethasone 2 MG Tab PO SCH (09:19)
[2016-07-15] MEDS: Docusate Sodium 100 MG Cap PO SCH ×2 (09:19→20:54)
[2016-07-15] MEDS: Tamsulosin 0.4 MG Cap.ER PO SCH (09:19)
[2016-07-15] MEDS: Calcium Carbonate/Vitamin D3 1250 MG-200 Unit Tab PO SCH (09:19)
[2016-07-15] MEDS: Enoxaparin 40 MG/0.4 ML Syringe SUBCUT SCH (09:20)
[2016-07-15] MEDS: Polyethylene Glycol 3350 Powder 17 GM Packet PO SCH (09:20)
[2016-07-15] MEDS: Cholecalciferol (Vitamin D3) 400 Unit Tab PO SCH (09:20)
[2016-07-15] MEDS: Lidocaine 5% 700 MG Patch TOP SCH (09:21)
[2016-07-15] MEDS: Calcitonin (Salmon) Nasal Spray 3.7 ML Bottle NAS SCH (09:21)
[2016-07-15] MEDS: Formoterol/Mometasone 200-5 MCG 8.8 GM Inhaler IH SCH ×2 (09:21→20:54)
[2016-07-15] MEDS: Check Patch TRDERM SCH ×2 (09:21→20:55)
[2016-07-15] MEDS: Simvastatin 10 MG Tab PO SCH (20:53)
[2016-07-16] MEDS: Pantoprazole 40 MG Tab.CR PO SCH (05:32)
[2016-07-16] MEDS: Calcium Carbonate/Vitamin D3 1250 MG-200 Unit Tab PO SCH (09:17)
[2016-07-16] MEDS: Docusate Sodium 100 MG Cap PO SCH ×2 (09:18→20:46)
[2016-07-16] MEDS: Check Patch TRDERM SCH ×2 (09:18→22:11)
[2016-07-16] MEDS: Baclofen 10 MG Tab PO SCH ×3 (09:19→20:45)
[2016-07-16] MEDS: Multivitamins,Therapeutic Tab PO SCH (09:19)
[2016-07-16] MEDS: Tamsulosin 0.4 MG Cap.ER PO SCH (09:19)
[2016-07-16] MEDS: Cholecalciferol (Vitamin D3) 400 Unit Tab PO SCH (09:20)
[2016-07-16] MEDS: Lidocaine 5% 700 MG Patch TOP SCH (09:21)
[2016-07-16] MEDS: Polyethylene Glycol 3350 Powder 17 GM Packet PO SCH (09:21)
[2016-07-16] MEDS: Enoxaparin 40 MG/0.4 ML Syringe SUBCUT SCH (09:21)
[2016-07-16] MEDS: Formoterol/Mometasone 200-5 MCG 8.8 GM Inhaler IH SCH ×2 (09:22→20:41)
[2016-07-16] MEDS: Calcitonin (Salmon) Nasal Spray 3.7 ML Bottle NAS SCH (09:23)
[2016-07-16] MEDS: Simvastatin 10 MG Tab PO SCH (20:46)
[2016-07-17] MEDS: Pantoprazole 40 MG Tab.CR PO SCH (05:41)
[2016-07-17] MEDS: Ibuprofen 600 MG Tab PO PRN (08:02)
[2016-07-17] MEDS: Lidocaine 5% 700 MG Patch TOP SCH (09:30)
[2016-07-17] MEDS: fentaNYL 12 MCG/HR Transdermal Patch TRDERM SCH (09:33)
[2016-07-17] MEDS: Check Patch TRDERM SCH ×2 (09:38→20:47)
[2016-07-17] MEDS: Enoxaparin 40 MG/0.4 ML Syringe SUBCUT SCH (09:39)
[2016-07-17] MEDS: Docusate Sodium 100 MG Cap PO SCH ×2 (09:41→20:48)
[2016-07-17] MEDS: Calcium Carbonate/Vitamin D3 1250 MG-200 Unit Tab PO SCH (09:41)
[2016-07-17] MEDS: Tamsulosin 0.4 MG Cap.ER PO SCH (09:41)
[2016-07-17] MEDS: Baclofen 10 MG Tab PO SCH ×3 (09:42→20:48)
[2016-07-17] MEDS: Multivitamins,Therapeutic Tab PO SCH (09:42)
[2016-07-17] MEDS: Cholecalciferol (Vitamin D3) 400 Unit Tab PO SCH (09:42)
[2016-07-17] MEDS: Polyethylene Glycol 3350 Powder 17 GM Packet PO SCH (09:43)
[2016-07-17] MEDS: Formoterol/Mometasone 200-5 MCG 8.8 GM Inhaler IH SCH ×2 (09:44→20:49)
[2016-07-17] MEDS: Calcitonin (Salmon) Nasal Spray 3.7 ML Bottle NAS SCH (09:44)
[2016-07-17] MEDS: Simvastatin 10 MG Tab PO SCH (20:48)
[2016-07-18] MEDS: Pantoprazole 40 MG Tab.CR PO SCH (07:44)
[2016-07-18] MEDS: Tamsulosin 0.4 MG Cap.ER PO SCH (08:54)
[2016-07-18] MEDS: Cholecalciferol (Vitamin D3) 400 Unit Tab PO SCH (08:54)
[2016-07-18] MEDS: Calcium Carbonate/Vitamin D3 1250 MG-200 Unit Tab PO SCH (08:54)
[2016-07-18] MEDS: Multivitamins,Therapeutic Tab PO SCH (08:54)
[2016-07-18] MEDS: Baclofen 10 MG Tab PO SCH ×3 (08:55→21:50)
[2016-07-18] MEDS: Check Patch TRDERM SCH ×2 (08:55→21:47)
[2016-07-18] MEDS: Docusate Sodium 100 MG Cap PO SCH ×2 (08:55→21:49)
[2016-07-18] MEDS: Enoxaparin 40 MG/0.4 ML Syringe SUBCUT SCH (08:55)
[2016-07-18] MEDS: Polyethylene Glycol 3350 Powder 17 GM Packet PO SCH (08:55)
[2016-07-18] MEDS: Lidocaine 5% 700 MG Patch TOP SCH (08:55)
[2016-07-18] MEDS: Calcitonin (Salmon) Nasal Spray 3.7 ML Bottle NAS SCH (08:56)
[2016-07-18] MEDS: Formoterol/Mometasone 200-5 MCG 8.8 GM Inhaler IH SCH ×2 (08:56→21:50)
[2016-07-18] MEDS: Simvastatin 10 MG Tab PO SCH (21:51)
[2016-07-19] MEDS: Pantoprazole 40 MG Tab.CR PO SCH (06:23)
[2016-07-19 07:40] VITALS: BP 106/57
--- NOTE | 2016-07-19 08:55 | PCM.DCSUM1 ---
Discharge Summary - Hospital Course Free Text/Narrative:: Admitted to [facility] for physical therapy low back pain na discharged to senior care 1. acute low back pain - due to subacute L2 compression fracture - - pain is fairly controlled with opiate orally - continue with physical therapy/OT - pain control: oxycodone prn, scheduled lidoderm patch, baclofen, fentanyl patch 2. compression fracture - continue calcitonin-salmon nasal - vitamin D 3. acute hypoxemic respiratory failure, resolved - likely due to r. sided CT/CXR changes of fibrosis vs. metastasis vs. atypical pneumonia but these changes are chronic - seen on ct 2011 as well - possible pneumonia - BCx: neg - complete the course of azithro, augmentin - leukocytosis, improved. Possibly was related to IV steroids - supplemental oxygen as possible - changes were discussed with the patient and patient's son - they are aware of the need to do outpatient followup with repeat imaging, pulmonary consult 4. dyslipidemia - treat with simvastatin 6. history of colon cancer status post surgery - ensure regular bowel movements 7. COPD - continue inhalers. see medication list 8. Constipation - continue colace, add miralax 9. impaired glucose tolerance - This was likely due to steroids, will taper code status: DNR he was on Lovenox for DVT prophylaxis - Discharge Data Discharge Date: 07/19/16 Discharge Disposition: DC/Tfer to SNF 03 Condition: Fair - Discharge Diagnosis/Problem(s) (1) Low back pain SNOMED Code(s): 373272022 ICD Code: M54.5 - LOW BACK PAIN Status: Acute Current Visit: No Qualifiers: (2) Lumbar compression fracture SNOMED Code(s): 479795311 ICD Code: S32.000A - WEDGE COMPRESSION FRACTURE OF UNSP LUMBAR VERTEBRA, INIT Status: Acute Priority: High Current Visit: No (3) Hypertension SNOMED Code(s): 96381509 ICD Code: I10 - ESSENTIAL (PRIMARY) HYPERTENSION Status: Chronic Priority : Medium Current Visit: No Qualifiers: - Patient Summary/Data Consults: Consultations 06/27/16 13:06 OT Evaluation and Treatment [CONS] Routine PT Evaluation and Treatment [CONS] Routine - Patient Instructions Diet: Heart Healthy Diet Activity: As Tolerated Driving: Do Not Drive Showering/Bathing: May Shower - Discharge Plan Home Medications: Home Meds Cholecalciferol (Vitamin D3) [Vitamin D3] 1,000 units PO DAILY 10/22/13 [History ] Docusate Sodium [Colace] 100 mg PO BID 10/22/13 [History] Simvastatin 10 mg PO BEDTIME 10/22/13 [History] Albuterol Sulfate [Proventil Hfa] 2 puff IH Q6H PRN 07/22/15 [History] Fluticasone/Salmeterol [Advair 250-50 Diskus] 1 puff INH BID 01/07/16 [History] Ipratropium [place] 2 sprays NASBOTH QID PRN 01/07/16 [History] Polyethylene Glycol 3350 [MiraLAX] 17 gm PO DAILY PRN 01/07/16 [History] Acetaminophen [Tylenol] 650 mg PO Q4H PRN #0 tablet 01/21/16 [Rx] Calcitonin ([place]) [Miacalcin Nasal [place]] 1 spray BAYRON DAILY #0 bottle [Rx] Calcium Carbonate/Vitamin D3 [Calcium 600-Vit D3 400 Tablet] 1 each PO DAILY # 30 tablet 01/25/16 [Rx] Multivit-Min/FA/Lycopene/Lut [Centrum Silver Ultra Men's] 1 each PO DAILY #30 tablet 01/25/16 [Rx] Tamsulosin [Flomax] 0.4 mg PO DAILY 06/23/16 [History] Acetaminophen/oxyCODONE [Percocet 325-5 MG] 1 tab PO Q6H PRN #0 tablet 06/27/16 [Rx] Baclofen [Lioresal] 10 mg PO TID tablet 06/27/16 [Rx] Lidocaine 5% [Lidoderm 5%] 700 mg TOP DAILY patch 06/27/16 [Rx] Pantoprazole [ProTONIX] 40 mg PO ACBREAKFAST tab.cr 06/27/16 [Rx] fentaNYL [Duragesic] 12 mcg TRDERM Q72H patch 06/27/16 [Rx] - General Info Date of Service: 07/19/16 - Review of Systems General: Reports: No Symptoms HEENT: Reports: no symptoms Pulmonary: Denies: cough, hemoptysis, wheezing Cardiovascular: Reports: No Symptoms Gastrointestinal: Denies: Abdominal pain, Difficulty swallowing, Hematochezia, Melena, Nausea, Vomiting Genitourinary: Reports: no symptoms Musculoskeletal: Reports: back pain. Denies: shoulder pain, arm pain Skin: Reports: no symptoms Neurological: Reports: No Symptoms Psychiatric: Reports: no symptoms - Patient Data Vitals - Most Recent: Last Vital Signs Temp 36.4 C 07/19/16 07:40 Pulse 77 07/19/16 07:40 Resp 20 07/19/16 07:40 BP 106/57 L 07/19/16 07:40 Pulse Ox 96 07/19/16 07:40 Weight - Most Recent: 56.722 kg I&O - Last 24 hours: Intake & Output 07/18/16 07/19/16 07/19/16 22:59 06:59 14:59 Intake Total 118 100 Balance 118 100 Med Orders - Current: Current Medications Acetaminophen (Tylenol) 650 mg PO Q4H PRN PRN Reason: Pain Last Admin: 07/13/16 09:08 Dose: 650 mg Albuterol (Proventil Hfa) 0 gm INH Q6H PRN PRN Reason: Wheezing Baclofen (Lioresal) 10 mg PO TID [facility] Last Admin: 07/18/16 21:50 Dose: 10 mg Calcitonin [place] (Miacalcin Nasal [place]) 0 ml BAYRON DAILY [facility] Last Admin: 07/18/16 08:56 Dose: 1 spray Calcium Carbonate (Calcium Carbonate/Vitamin D 1250 Mg-200 Unit) 1 tab PO DAILY [facility] Last Admin: 07/18/16 08:54 Dose: 1 tab Cholecalciferol (Vitamin D3) 1,000 units PO DAILY [facility] Last Admin: 07/18/16 08:54 Dose: 1,000 units Docusate Sodium (Colace) 100 mg PO BID [facility] Last Admin: 07/18/16 21:49 Dose: 100 mg Enoxaparin Sodium (Lovenox) 40 mg SUBCUT DAILY [facility] Last Admin: 07/18/16 08:55 Dose: 40 mg Fentanyl (Duragesic) 12 mcg TRDERM Q72H [facility] Last Admin: 07/17/16 09:33 Dose: 12 mcg Ibuprofen (Motrin) 600 mg PO Q6H PRN PRN Reason: Pain Last Admin: 07/17/16 08:02 Dose: 600 mg Lidocaine (Lidoderm 5%) 700 mg TOP DAILY [facility] Last Admin: 07/18/16 08:55 Dose: 700 mg Miscellaneous Information (Check Patch) 1 ea TRDERM BID [facility] Last Admin: 07/18/16 21:47 Dose: Not Given Miscellaneous Information (Remove Patch) 1 ea TRDERM Q72H [facility] Last Admin: 07/17/16 09:32 Dose: Not Given Miscellaneous Information (Remove Patch) 1 ea TRDERM BEDTIME [facility] Last Admin: 07/18/16 21:51 Dose: Not Given Mometasone Furoate/Formoterol Fumar (Dulera 200-5 Mcg) 2 puff IH BID [facility] Last Admin: 07/18/16 21:50 Dose: 2 puff Multivitamins (Thera) 1 each PO DAILY [facility] Last Admin: 07/18/16 08:54 Dose: 1 each Oxycodone/Acetaminophen (Percocet 325-5 Mg) 1 tab PO Q6H PRN PRN Reason: Pain Last Admin: 07/09/16 20:36 Dose: 1 tab Pantoprazole Sodium (Protonix) 40 mg PO ACBREAKFAST [facility] Last Admin: 07/19/16 06:23 Dose: 40 mg Ipratropium [place] (Pt's Own Med) 2 each NASBOTH QID PRN PRN Reason: Rhinitis Polyethylene Glycol (Miralax) 17 gm PO DAILY [facility] Last Admin: 07/18/16 08:55 Dose: 17 gm Simvastatin (Zocor) 10 mg PO BEDTIME [facility] Last Admin: 07/18/16 21:51 Dose: 10 mg Sodium Chloride (Saline Flush) 10 ml FLUSH ASDIRECTED PRN PRN Reason: Keep Vein Open Last Admin: 07/08/16 20:35 Dose: 10 ml Tamsulosin HCl (Flomax) 0.4 mg PO DAILY [facility] Last Admin: 07/18/16 08:54 Dose: 0.4 mg Zolpidem Tartrate (Ambien) 5 mg PO BEDTIME PRN PRN Reason: Sleep Discontinued Medications Amoxicillin/Clavulanate Potassium (Augmentin 500 Mg\125 Mg) 1 tab PO Q8HR [facility] Last Admin: 07/05/16 05:58 Dose: 1 tab Azithromycin (Zithromax) 250 mg PO DAILY [facility] Last Admin: 07/05/16 08:45 Dose: 250 mg Dexamethasone (Dexamethasone) 4 mg PO DAILY [facility] Last Admin: 07/07/16 09:30 Dose: 4 mg Dexamethasone (Dexamethasone) 3 mg PO DAILY [facility] Stop: 07/15/16 09:01 Last Admin: 07/15/16 09:19 Dose: 3 mg Fentanyl (Sublimaze) 50 mcg IVPUSH Q2H PRN PRN Reason: Pain (severe 7-10) Last Admin: 07/01/16 16:31 Dose: 50 mcg Ondansetron HCl (Zofran) 4 mg IV Q8HR PRN PRN Reason: Nausea - Exam General: Reports: alert, oriented, cooperative, no acute distress. Denies: moderate distress, severe distress, sedated, lethargic, obtunded HEENT: Reports: Pupils equal, Pupils reactive, EOMI, Mucous membr. moist/pink Neck: Reports: supple, trachea midline, no JVD Lungs: Reports: Clear to auscultation, Normal respiratory effort Cardiovascular: Reports: Regular Rate, Regular Rhythm Abdomen: Reports: bowel sounds present, soft, no tenderness, no distension (Male) Exam: Deferred Rectal (Males) Exam: Deferred Back Exam: Reports: other (in a brace) Extremities: Reports: no edema, normal pulses, no tenderness/swelling, no clubbing Skin: Reports: warm, dry, intact Neurological: Reports: no new focal deficit, normal speech, normal tone Psy/Mental Status: Reports: alert, normal affect, normal mood *Q Meaningful Use (DIS) - VTE *Q VTE Criteria *Q: - Stroke *Q Stroke Criteria *Q: - AMI *Q AMI Criteria *Q:
[2016-07-19] MEDS: Tamsulosin 0.4 MG Cap.ER PO SCH (10:00)
[2016-07-19] MEDS: Multivitamins,Therapeutic Tab PO SCH (10:00)
[2016-07-19] MEDS: Baclofen 10 MG Tab PO SCH ×2 (10:00→15:24)
[2016-07-19] MEDS: Calcium Carbonate/Vitamin D3 1250 MG-200 Unit Tab PO SCH (10:01)
[2016-07-19] MEDS: Cholecalciferol (Vitamin D3) 400 Unit Tab PO SCH (10:01)
[2016-07-19] MEDS: Docusate Sodium 100 MG Cap PO SCH (10:01)
[2016-07-19] MEDS: Calcitonin (Salmon) Nasal Spray 3.7 ML Bottle NAS SCH (10:01)
[2016-07-19] MEDS: Formoterol/Mometasone 200-5 MCG 8.8 GM Inhaler IH SCH (10:01)
[2016-07-19] MEDS: Enoxaparin 40 MG/0.4 ML Syringe SUBCUT SCH (10:02)
[2016-07-19] MEDS: Lidocaine 5% 700 MG Patch TOP SCH (10:03)
[2016-07-19] MEDS: Check Patch TRDERM SCH (10:04)
[2016-07-19] MEDS: Polyethylene Glycol 3350 Powder 17 GM Packet PO SCH (10:06)
== END 2016-07-19 12:55 | DRG 559 ==
LOC: DL.MS 12:18 → UNDOADMIN 12:18 → DL.MS 13:06
PROVIDERS: ADMIT Internal Medicine; ATTEND Internal Medicine
DX: S32.000D Wedge compression fracture of unspecified lumbar vertebra, subsequent encounter for fracture with routine healing (principal); J18.9 Pneumonia, unspecified organism; M54.2 Cervicalgia; E78.5 Hyperlipidemia, unspecified; Z85.038 Personal history of other malignant neoplasm of large intestine; J44.9 Chronic obstructive pulmonary disease, unspecified; K59.00 Constipation, unspecified; R73.02 Impaired glucose tolerance (oral); I10 Essential (primary) hypertension; E78.00 Pure hypercholesterolemia, unspecified; M81.0 Age-related osteoporosis without current pathological fracture; F41.8 Other specified anxiety disorders; Z87.891 Personal history of nicotine dependence; J45.909 Unspecified asthma, uncomplicated
CPT/HCPCS: 36415; 71020; 80048; 85025; 97110-GO; 97110-GP; 97116-GP; 97161-GP; 97166-GO; 97530-GO; 97535-GO; A9270-GY; J1650; J3010; J7050; J8540